=== PATIENT | male | born 1960 | race Caucasian/White ===

== ENCOUNTER 2016-09-14 19:08 | Inpatient (IN) | payer OTHER ==
[~2016-09-14] VITALS: Ht 162.6 cm; Wt 93.5 kg
--- NOTE | 2016-09-14 19:37 | NUR ---
PT SENT BACK OUT TO LOBBY PENDING BED AVAIL. PT AAOX4 AND IN NAD.
[2016-09-14 21:41] LABS: BASOPHIL % 0.6 % (0-2)
[2016-09-14 21:42] LABS: PLATELET COUNT 118 x10^3mcL (130-400)
[2016-09-14 21:47] LABS: CALCIUM 8.3 mg/dL (8.5-10.1); CARBON DIOXIDE 25.2 mmol/L (21-32); CREATININE SERUM 1.5 mg/dL (0.7-1.3)
[2016-09-14 21:54] LABS: ALBUMIN 2.3 g/dL (3.4-5.0); BILIRUBIN TOTAL 0.37 mg/dL (0.20-1.00); TOTAL PROTEIN, SERUM 7.8 g/dL (6.4-8.2)
--- NOTE | 2016-09-14 22:30 | NUR ---
MSE COMPLETED BY DR DUKE
--- NOTE | 2016-09-14 23:09 | NUR ---
REPORT CALLED TO VANESSA JESSICA TO ASSUME CARE OF PT
--- NOTE | 2016-09-14 23:15 | NUR ---
RECEIVED PT FROM ED VIA GUERNEY, CAME IN DUE TO ABDOMINAL PAIN. AAOX4. DENIES HEADACHE/DIZZINESS. NO SOB NOTED, C/O 1 EPISODE OF HEMOPTYSIS BEFORE ADMISSION. LUNG SOUNDS DIMINISHED. DENIES CHEST PAIN/PRESSURE. C/O 10/10 SHARP AND TIGHT MID ABDOMINAL PAIN. ABDOMEN IS DISTENDED AND MILDLY FIRM. C/O DIARRHEA FOR 4 DAYS. VOIDS FREELY. SIDE RAILS UPX2. CALL LIGHT ON REACH. DR. TOLBERT AT BEDSIDE ASSESSING THE PT. ENDORSED.
[2016-09-14 23:29] VITALS: BP 176/102
[2016-09-14 23:29] LABS: CHOLESTEROL/HDL RATIO 2.9; MAGNESIUM 1.9 mg/dL (1.8-2.4); PHOSPHOROUS 3.8 mg/dL (2.5-4.9)
[2016-09-14 23:36] VITALS: Ht 162.6 cm; Wt 93.5 kg
[2016-09-14 23:36] LABS: FREE T4 0.86 ng/dL (0.76-1.46); FREE THYROXINE INDEX 2.1 ug/dL (1.4-4.5); T4(THYROXINE) 6.7 ug/dL (4.7-13.3)
--- NOTE | 2016-09-14 23:53 | NUR ---
RECEIVED PATIENT AWAKE, ALERT, ORIENTED X4 IN BED. RESPIRATION EVEN AND UNLABORED, ON ROOM AIR. REPORT RECEIVED FROM RESOURCE NURSE FOR CONTINUATION OF CARE. WILL CONTINUE TO MONITOR.
[2016-09-15 00:23] LABS: T3 TOTAL 1.42 ng/mL
[2016-09-15] MEDS ORDERED: LISINOPRIL2.5 MG PO (00:34)
[2016-09-15] MEDS ORDERED: FUROSEMIDE20 MG PO (00:34)
[2016-09-15 00:38] VITALS: BP 142/90
--- NOTE | 2016-09-15 02:39 | NUR ---
PATIENT COMPLAINED OF SHARP, MID EPIGASTRIC PAIN, PS 10/10. MEDICATED WITH MORPHINE SULFATE 2 MG IVP ORDERED. WILL RE-ASSESS PATIENT.
[2016-09-15 02:45] LABS: UA SPECIFIC GRAVITY 1.025 (1.005-1.035); microscopic required? YES; urine erythrocyte 2+ (NEGATIVE)
[2016-09-15 02:54] LABS: AMPHETAMINE QUAL UR NONE DETECTED (NEG <=1000)
[2016-09-15 04:50] LABS: BASOPHIL % 0.5 % (0-2); RED CELL DISTRIBUTION WIDTH 13.4 % (11.5-14.5)
[2016-09-15 04:57] LABS: CALCIUM 8.1 mg/dL (8.5-10.1); CARBON DIOXIDE 23.8 mmol/L (21-32); CHLORIDE SERUM 110 mmol/L (98-107); CREATININE SERUM 1.3 mg/dL (0.7-1.3); GFR1 > 60 mL/min; GLUCOSE SERUM 111 mg/dL (74-106); POTASSIUM SERUM 3.8 mmol/L (3.5-5.1); SODIUM SERUM 146 mmol/L (136-145)
[2016-09-15 04:58] LABS: PLATELET COUNT 100 x10^3mcL (130-400)
[2016-09-15 05:35] VITALS: BP 131/84
--- NOTE | 2016-09-15 06:00 | NUR ---
PATIENT RESTING IN BED. DENIES PAIN AT THIS TIME. ON NPO EXCEPT MEDS. IV SITE NO SIGN OF INFILTRATION. ASSISTED WITH NEEDS. SAFETY OBSERVED. BED IN THE LOWEST POSITION. PLACED CALL LIGHT WITHIN REACH AT ALL TIMES.
--- NOTE | 2016-09-15 06:23 | NUR ---
PATIENT OF MID EPIGASTRIC ABDOMINAL, SHARP IN NATURE, PS 10/10. MEDICATED WITH MORPHINE SULFATE 2MG IVP ORDERED. WILL RE-ASSESS PATIENT.
--- NOTE | 2016-09-15 07:55 | NUR ---
PT AWAKE AND ALERT. TEMP 97.8. TELE #17 SINUS RHYTHM RATE 84. RESP 18 EVEN. BREATH SOUNDS CLEAR. ABD SOFT, BOWEL TONES PRESENT. C/O ABD DISCOMFORT UPPER QUADRANT "CENTER BELOW RIBS 8/10 ACHING" LAST MED WITH MORPHINE SULFATE AT 0615. WILL CONTINUE TO MONITOR FOR PAIN MANAGEMENT. VOIDING QS. NO EDEMA. PULSES PRESENT. SCD IN PLACE. IV PATENT LAC INFUSING NORMAL SALINE 20CC/HR. NPO AT THIS TIME. SIDE RAILS UP X2. CALL LIGHT IN REACH. DR XIE IN TO SEE PT. FOR EGD TODAY. DR MENDEZ AND MEDICAL TEAM IN ON ROUNDS. CHARGE AND PRIMARY NURSE PRESENT. DISCUSSED PLAN OF CARE WITH PT. PT VERBALIZED UNDERSTANDING.
--- NOTE | 2016-09-15 09:50 | NUR ---
PT CHART COMPLETED. ARMBAND IDENTIFIED. IV CONVERTED TO SALINE LOCK. PT TAKEN DOWN VIA GURNEY TO GI LAB FOR EGD AT THIS TIME.
[2016-09-15 10:27] VITALS: BP 145/84
--- NOTE | 2016-09-15 11:40 | NUR ---
RECEIVED PT BACK TO ROOM, AWAKE AND ALERT. FAMILY AT BEDSIDE. IVF RESUMED NORMAL SALINE 20CC/HR. MAY ADVANCE TO REGULAR DIET FOR LUNCH. PT MADE AWARE. REVIEWED NEED FOR STOOL SAMPLE FOR C-DIFF. CONTAINER IN ROOM. VERBALIZED UNDERSTANDING.
--- NOTE | 2016-09-15 13:50 | NUR ---
C/O ABD PAIN CENTER UNDER RIBS "12/09". REQUESTS MORPHINE. MED WITH MORPHINE SULFATE 2MG IVP ORDERED.
--- NOTE | 2016-09-15 14:30 | NUR ---
REPORTS "PAIN IS BETTER 2/10." FAMILY AT BEDSIDE. IV SALINE LOCK.
[2016-09-15 17:35] VITALS: BP 142/86
--- NOTE | 2016-09-15 18:00 | NUR ---
NO BM THIS SHIFT. SALINE LOCK INTACT. PT REPORTS "STOMACH HURTS AGAIN 12/09." REQUESTS MORPHINE. MED WITH MORPHINE SULFATE 2MG IVP. TOLERATES REGULAR DIET WELL NO C/O NAUSEA. CALL LIGHT IN REACH.
--- NOTE | 2016-09-15 19:52 | NUR ---
Awake and verbally responsive. No resp.distress noted on room air. Denies abd'l.pain or n/v. Denies diarrhea at this time. Will cont.to monitor. Call light within reach. visiting.
[2016-09-15 21:33] VITALS: BP 139/79
--- NOTE | 2016-09-16 04:09 | NUR ---
Afebrile. No significant change in condition noted. On and off abd'l. pain , medicated with morphine 2mg IV as ordered with relief. No n/v noted. Denies diarrhea. Ambulated. In no apparent distress.
[2016-09-16 06:09] LABS: CREATININE SERUM 1.3 mg/dL (0.7-1.3); GFR1 > 60 mL/min
[2016-09-16 06:26] LABS: BASOPHIL % 0.6 % (0-2); RED CELL DISTRIBUTION WIDTH 13.8 % (11.5-14.5)
[2016-09-16 06:30] LABS: PLATELET COUNT 98 x10^3mcL (130-400)
[2016-09-16 06:53] LABS: CARBON DIOXIDE 27.1 mmol/L (21-32); CHLORIDE SERUM 107 mmol/L (98-107); GLUCOSE SERUM 88 mg/dL (74-106); POTASSIUM SERUM 4.1 mmol/L (3.5-5.1); SODIUM SERUM 140 mmol/L (136-145)
--- NOTE | 2016-09-16 08:00 | NUR ---
RECEIVED PT IN BED.ASSESSED AND DOCUMENTED.STATED RT SIDE ABDOMINAL PAIN,12/09. WILL MEDICATE PT WITH MORPHINE IV ORDERED. SAFTEY PRECAUTIONS ON. WILL MONITOR.
--- NOTE | 2016-09-16 08:45 | NUR ---
AND RESIDENTS DID ROUNDS. EXPLAINED THE PLAN OF CARE AND ANSWERED ALL PT'S QUESTIONS.
--- NOTE | 2016-09-16 09:00 | NUR ---
INFORMED ABOUT PT POSITIVE FOR MRSA OF [place]. HE SAID HE WILL PUT ORDER'S.
[2016-09-16 10:14] VITALS: BP 118/74
[2016-09-16] MEDS ORDERED: HIBICLENS118 ML TOP (11:29)
[2016-09-16] MEDS ORDERED: BACO TOP (11:29)
[2016-09-16] MEDS ORDERED: PROTONIX40 MG PO (11:37)
[2016-09-16 12:48] VITALS: BP 118/74
--- NOTE | 2016-09-16 13:10 | NUR ---
DISCHARGE INSTRUCTIONS GIVEN. PRESCRIPTIONS SENT TO HIS PHARMACY BY DOCTOR. PT DENIES PAIN THIS TIME. NO DISTRESS NOTED. TAIL TRIMMER WHEELED PT DOWN TO LOBBY ACCOMPANIED WITH PT'S . PT DC HOME.
== END 2016-09-16 13:25 | disposition home or self-care (01) | DRG 254 ==
LOC: ED 19:08 → DU 22:34 → MU 22:34 → DU 23:24 → MU 09-15 08:36
PROVIDERS: Emergency Medicine; Family Medicine; Internal Medicine; ADMIT Family Medicine
PROC: 0DJ08ZZ Inspection of Upper Intestinal Tract, Via Natural or Artificial Opening Endoscopic (ICD-10-PCS; principal; 2016-09-15 12:30)
DX: K31.84 Gastroparesis (principal); N17.0 Acute kidney failure with tubular necrosis; I85.11 Secondary esophageal varices with bleeding; E43 Unspecified severe protein-calorie malnutrition; K85.90 Acute pancreatitis without necrosis or infection, unspecified; E87.8 Other disorders of electrolyte and fluid balance, not elsewhere classified; K92.0 Hematemesis; D69.59 Other secondary thrombocytopenia; E83.51 Hypocalcemia; B18.2 Chronic viral hepatitis C; K70.30 Alcoholic cirrhosis of liver without ascites; I10 Essential (primary) hypertension; E78.1 Pure hyperglyceridemia; E02 Subclinical iodine-deficiency hypothyroidism; E66.9 Obesity, unspecified; Z68.35 Body mass index [BMI] 35.0-35.9, adult; Z87.891 Personal history of nicotine dependence
CPT/HCPCS: 43235; 80307; 83880; 84439; C9113; J1200; J1610; J1940; J2250; J2270; J2310; J2405; J3010; J3490; J7030; Q0092

== ENCOUNTER 2016-10-18 06:38 | Inpatient (IN) | payer OTHER ==
[~2016-10-18] VITALS: Ht 170.2 cm; Wt 93.5 kg
[~2016-10-18 06:38] MED LIST: BACO TOP; FUROSEMIDE20 MG PO; HIBICLENS118 ML TOP; LISINOPRIL2.5 MG PO; PROTONIX40 MG PO
[2016-10-18 07:22] LABS: BASOPHIL % 0.3 % (0-2); PLATELET COUNT 84 x10^3mcL (130-400); RED CELL DISTRIBUTION WIDTH 14.6 % (11.5-14.5)
[2016-10-18 07:44] LABS: CALCIUM 8.2 mg/dL (8.5-10.1); CARBON DIOXIDE 24.1 mmol/L (21-32); CHLORIDE SERUM 110 mmol/L (98-107); GFR1 > 60 mL/min; GLUCOSE SERUM 105 mg/dL (74-106); POTASSIUM SERUM 3.6 mmol/L (3.5-5.1); SODIUM SERUM 141 mmol/L (136-145)
[2016-10-18 07:48] LABS: ALKALINE PHOSPHATASE 83 U/L (46-116); ALT/SGPT 63 U/L (16-63); AST/SGOT 62 U/L (15-37); BILIRUBIN TOTAL 0.5 mg/dL (0.20-1.00); TOTAL PROTEIN, SERUM 6.7 g/dL (6.4-8.2)
[2016-10-18 07:50] LABS: ALBUMIN 2.2 g/dL (3.4-5.0)
[2016-10-18 09:38] LABS: BASOPHIL % 0.4 % (0-2)
[2016-10-18 09:42] LABS: PLATELET COUNT 75 x10^3mcL (130-400)
[2016-10-18 11:00] VITALS: BP 158/83
[2016-10-18 12:03] LABS: T3 TOTAL 1.36 ng/mL
[2016-10-18 13:02] LABS: MAGNESIUM 1.7 mg/dL (1.8-2.4)
[2016-10-18 13:05] LABS: CHOLESTEROL/HDL RATIO 2.7
[2016-10-18 13:10] LABS: FREE T4 0.94 ng/dL (0.76-1.46); FREE THYROXINE INDEX 2.2 ug/dL (1.4-4.5); T4(THYROXINE) 6.4 ug/dL (4.7-13.3)
[2016-10-18 14:10] VITALS: BP 132/86
[2016-10-18 17:13] VITALS: BP 138/76
[2016-10-18 18:06] LABS: UA SPECIFIC GRAVITY 1.025 (1.005-1.035); microscopic required? YES; urine erythrocyte 2+ (NEGATIVE)
[2016-10-18 18:14] LABS: AMPHETAMINE QUAL UR NONE DETECTED (NEG <=1000)
[2016-10-18 21:22] VITALS: BP 126/69
[2016-10-19 05:22] VITALS: BP 143/80
[2016-10-19 06:32] LABS: BASOPHIL % 0.5 % (0-2)
[2016-10-19 06:39] LABS: PLATELET COUNT 62 x10^3mcL (130-400); RED CELL DISTRIBUTION WIDTH 14.9 % (11.5-14.5)
[2016-10-19 06:43] LABS: CALCIUM 7.6 mg/dL (8.5-10.1); CARBON DIOXIDE 24.9 mmol/L (21-32); CHLORIDE SERUM 114 mmol/L (98-107); CREATININE SERUM 0.9 mg/dL (0.7-1.3); GFR1 > 60 mL/min; GLUCOSE SERUM 91 mg/dL (74-106); MAGNESIUM 1.8 mg/dL (1.8-2.4); PHOSPHOROUS 3.3 mg/dL (2.5-4.9); POTASSIUM SERUM 4.4 mmol/L (3.5-5.1); SODIUM SERUM 145 mmol/L (136-145)
[2016-10-19 09:51] VITALS: BP 138/85
[2016-10-19 11:21] VITALS: Ht 170.2 cm; Wt 93.5 kg
[2016-10-19 14:37] VITALS: BP 144/83
[2016-10-19 17:56] VITALS: BP 153/80
[2016-10-19 21:37] VITALS: BP 147/82
[2016-10-20 05:35] VITALS: BP 135/76
[2016-10-20 06:45] LABS: BASOPHIL % 0.5 % (0-2)
[2016-10-20 06:54] LABS: CALCIUM 7.7 mg/dL (8.5-10.1); CARBON DIOXIDE 24.6 mmol/L (21-32); CHLORIDE SERUM 114 mmol/L (98-107); CREATININE SERUM 0.8 mg/dL (0.7-1.3); GFR1 > 60 mL/min; GLUCOSE SERUM 90 mg/dL (74-106); POTASSIUM SERUM 4.7 mmol/L (3.5-5.1); SODIUM SERUM 144 mmol/L (136-145)
[2016-10-20 07:15] LABS: PLATELET COUNT 66 x10^3mcL (130-400)
[2016-10-20 09:14] VITALS: BP 131/72
[2016-10-20 13:11] VITALS: BP 131/72
[2016-10-20] MEDS ORDERED: PROTONIX40 MG PO (15:50)
[2016-10-20] MEDS ORDERED: LISINOPRIL2.5 MG PO (15:50)
[2016-10-20] MEDS ORDERED: FUROSEMIDE20 MG PO (15:50)
[2016-10-20] MEDS ORDERED: APAP/HYDROCODON1 T13 PO (15:51)
[2016-10-20] MEDS ORDERED: CARAFATE1 GM PO (15:53)
[2016-10-20] MEDS ORDERED: COL100 PO (15:59)
== END 2016-10-20 17:22 | disposition home or self-care (01) | DRG 280 ==
LOC: ED 06:38 → DU 10:16 → MU 10-19 12:22
PROVIDERS: Emergency Medicine; Family Medicine; Internal Medicine; ADMIT Family Medicine
PROC: 0DJ08ZZ Inspection of Upper Intestinal Tract, Via Natural or Artificial Opening Endoscopic (ICD-10-PCS; principal; 2016-10-18 13:30)
DX: K70.30 Alcoholic cirrhosis of liver without ascites (principal); N17.0 Acute kidney failure with tubular necrosis; E43 Unspecified severe protein-calorie malnutrition; I85.11 Secondary esophageal varices with bleeding; D69.59 Other secondary thrombocytopenia; E87.8 Other disorders of electrolyte and fluid balance, not elsewhere classified; E83.42 Hypomagnesemia; Z68.32 Body mass index [BMI] 32.0-32.9, adult; I10 Essential (primary) hypertension; E66.9 Obesity, unspecified; K31.84 Gastroparesis; R31.9 Hematuria, unspecified
CPT/HCPCS: 43235; 83880; 84439; C9113; J1200; J1610; J2250; J2270; J2310; J2765; J3010; J3490; J7030; Q0092

== ENCOUNTER 2016-10-30 07:28 | Emergency (ER) | payer OTHER ==
[~2016-10-30 07:28] MED LIST changes: +APAP/HYDROCODON1 T13 PO; +CARAFATE1 GM PO; +COL100 PO
[2016-10-30 08:23] LABS: BASOPHIL % 0.6 % (0-2)
[2016-10-30 08:31] LABS: PLATELET COUNT 102 x10^3mcL (130-400); RED CELL DISTRIBUTION WIDTH 14.6 % (11.5-14.5)
[2016-10-30 08:46] LABS: CALCIUM 8.3 mg/dL (8.5-10.1); CARBON DIOXIDE 21.8 mmol/L (21-32); CHLORIDE SERUM 110 mmol/L (98-107); CREATININE SERUM 1.1 mg/dL (0.7-1.3); GFR1 > 60 mL/min; GLUCOSE SERUM 105 mg/dL (74-106); POTASSIUM SERUM 3.9 mmol/L (3.5-5.1); SODIUM SERUM 141 mmol/L (136-145)
[2016-10-30 08:51] LABS: ALKALINE PHOSPHATASE 84 U/L (46-116); ALT/SGPT 58 U/L (16-63); AST/SGOT 61 U/L (15-37); BILIRUBIN TOTAL 0.9 mg/dL (0.20-1.00); LIPASE 208 IU/L (73-393)
[2016-10-30 08:56] LABS: ALBUMIN 2.4 g/dL (3.4-5.0)
[2016-10-30 09:05] VITALS: BP 150/95
== END 2016-10-30 09:16 | disposition home or self-care (01) ==
LOC: ED 07:28
PROVIDERS: Emergency Medicine
DX: R10.13 Epigastric pain (principal); I10 Essential (primary) hypertension
CPT/HCPCS: J2270; J2405; Q0092

== ENCOUNTER 2016-10-31 20:29 | Emergency (ER) | payer OTHER ==
[2016-10-31 21:09] LABS: BASOPHIL % 0.6 % (0-2); RED CELL DISTRIBUTION WIDTH 14.5 % (11.5-14.5)
[2016-10-31 21:10] LABS: PLATELET COUNT 106 x10^3mcL (130-400)
[2016-10-31 21:16] LABS: CALCIUM 7.9 mg/dL (8.5-10.1); CARBON DIOXIDE 23.8 mmol/L (21-32); CHLORIDE SERUM 107 mmol/L (98-107); CREATININE SERUM 1.2 mg/dL (0.7-1.3); GFR1 > 60 mL/min; GLUCOSE SERUM 80 mg/dL (74-106); POTASSIUM SERUM 3.9 mmol/L (3.5-5.1); SODIUM SERUM 136 mmol/L (136-145)
[2016-10-31 21:21] LABS: ALKALINE PHOSPHATASE 75 U/L (46-116); ALT/SGPT 50 U/L (16-63); AST/SGOT 54 U/L (15-37); BILIRUBIN TOTAL 0.81 mg/dL (0.20-1.00); LIPASE 214 IU/L (73-393); TOTAL PROTEIN, SERUM 6.5 g/dL (6.4-8.2)
[2016-10-31 21:23] LABS: ALBUMIN 2.2 g/dL (3.4-5.0); AMYLASE 117 U/L (25-115)
[2016-10-31 21:47] LABS: CK-MB 0.9 ng/mL (0-3.6)
[2016-10-31 22:38] LABS: microscopic required? YES; urine erythrocyte 1+ (NEGATIVE)
[2016-11-01 01:55] VITALS: BP 150/80
== END 2016-11-01 01:55 | disposition home or self-care (01) ==
LOC: ED 20:29
PROVIDERS: Emergency Medicine
DX: M54.5 Low back pain (principal); J40 Bronchitis, not specified as acute or chronic; I10 Essential (primary) hypertension
CPT/HCPCS: J1170; J2270; J2405; J7040; J7613; J7644; Q9967

== ENCOUNTER 2016-11-04 23:51 | Emergency (ER) | payer OTHER ==
[2016-11-05 04:08] LABS: BASOPHIL % 1.3 % (0-2); PLATELET COUNT 131 x10^3mcL (130-400)
[2016-11-05 04:12] LABS: RED CELL DISTRIBUTION WIDTH 14.7 % (11.5-14.5)
[2016-11-05 04:19] LABS: CALCIUM 7.2 mg/dL (8.5-10.1); CARBON DIOXIDE 20.9 mmol/L (21-32); CHLORIDE SERUM 111 mmol/L (98-107); CREATININE SERUM 0.9 mg/dL (0.7-1.3); GFR1 > 60 mL/min; GLUCOSE SERUM 116 mg/dL (74-106); POTASSIUM SERUM 3.3 mmol/L (3.5-5.1); SODIUM SERUM 143 mmol/L (136-145)
[2016-11-05 04:23] LABS: ALKALINE PHOSPHATASE 91 U/L (46-116); ALT/SGPT 43 U/L (16-63); AST/SGOT 66 U/L (15-37); BILIRUBIN TOTAL 0.2 mg/dL (0.20-1.00); LIPASE 295 IU/L (73-393); TOTAL PROTEIN, SERUM 6.2 g/dL (6.4-8.2)
[2016-11-05 04:27] LABS: ALBUMIN 1.8 g/dL (3.4-5.0)
[2016-11-05 05:45] VITALS: BP 146/90
== END 2016-11-05 05:45 | disposition home or self-care (01) ==
LOC: ED 23:51
PROVIDERS: Emergency Medicine
DX: R11.2 Nausea with vomiting, unspecified (principal); I10 Essential (primary) hypertension; Z79.899 Other long term (current) drug therapy
CPT/HCPCS: J7030

== ENCOUNTER 2016-11-15 06:19 | Emergency (ER) | payer OTHER ==
[2016-11-15 06:40] LABS: BASOPHIL % 0.6 % (0-2)
[2016-11-15 06:50] LABS: PLATELET COUNT 93 x10^3mcL (130-400); RED CELL DISTRIBUTION WIDTH 15.2 % (11.5-14.5)
[2016-11-15 06:57] LABS: CALCIUM 7.7 mg/dL (8.5-10.1); CARBON DIOXIDE 22.7 mmol/L (21-32); CHLORIDE SERUM 114 mmol/L (98-107); CREATININE SERUM 0.9 mg/dL (0.7-1.3); GFR1 > 60 mL/min; GLUCOSE SERUM 103 mg/dL (74-106); POTASSIUM SERUM 3.7 mmol/L (3.5-5.1); SODIUM SERUM 146 mmol/L (136-145)
[2016-11-15 07:01] LABS: ALKALINE PHOSPHATASE 67 U/L (46-116); ALT/SGPT 57 U/L (16-63); AST/SGOT 80 U/L (15-37); BILIRUBIN TOTAL 0.36 mg/dL (0.20-1.00); LIPASE 249 IU/L (73-393); TOTAL PROTEIN, SERUM 6.3 g/dL (6.4-8.2)
[2016-11-15 08:43] VITALS: BP 178/110
== END 2016-11-15 08:43 | disposition home or self-care (01) ==
LOC: ED 06:19
PROVIDERS: Emergency Medicine
DX: K92.0 Hematemesis (principal); I10 Essential (primary) hypertension; K74.60 Unspecified cirrhosis of liver; Z86.79 Personal history of other diseases of the circulatory system; Z87.19 Personal history of other diseases of the digestive system
CPT/HCPCS: J2405; J3010; J3490; J7030; Q0092

== ENCOUNTER 2016-11-18 21:35 | Emergency (ER) | payer OTHER ==
[2016-11-19 00:14] VITALS: BP 163/90
== END 2016-11-19 00:15 | disposition home or self-care (01) ==
LOC: ED 21:35
DX: M25.561 Pain in right knee (principal); M79.89 Other specified soft tissue disorders; I10 Essential (primary) hypertension; Z86.79 Personal history of other diseases of the circulatory system; Z98.890 Other specified postprocedural states
CPT/HCPCS: J1885; Q0092

== ENCOUNTER 2016-11-20 17:07 | Emergency (ER) | payer OTHER ==
[~2016-11-20] VITALS: Ht 172.7 cm; Wt 96.2 kg
[2016-11-20 19:25] LABS: BASOPHIL % 0.4 % (0-2)
[2016-11-20 19:29] LABS: PLATELET COUNT 91 x10^3mcL (130-400); RED CELL DISTRIBUTION WIDTH 15.5 % (11.5-14.5)
[2016-11-20 19:34] LABS: CALCIUM 7.9 mg/dL (8.5-10.1); CARBON DIOXIDE 26.6 mmol/L (21-32); CHLORIDE SERUM 111 mmol/L (98-107); CREATININE SERUM 0.9 mg/dL (0.7-1.3); GFR1 > 60 mL/min; GLUCOSE SERUM 94 mg/dL (74-106); POTASSIUM SERUM 4.3 mmol/L (3.5-5.1); SODIUM SERUM 143 mmol/L (136-145)
[2016-11-20 19:39] LABS: ALKALINE PHOSPHATASE 68 U/L (46-116); ALT/SGPT 78 U/L (16-63); AST/SGOT 82 U/L (15-37); BILIRUBIN TOTAL 0.36 mg/dL (0.20-1.00); LIPASE 199 IU/L (73-393); TOTAL PROTEIN, SERUM 6.4 g/dL (6.4-8.2)
[2016-11-20 19:40] LABS: ALBUMIN 2.1 g/dL (3.4-5.0)
[2016-11-20 20:30] VITALS: BP 163/93
== END 2016-11-20 20:30 | disposition home or self-care (01) ==
LOC: ED 17:07
PROVIDERS: Emergency Medicine
DX: M54.9 Dorsalgia, unspecified (principal); R10.11 Right upper quadrant pain; K74.60 Unspecified cirrhosis of liver; R16.0 Hepatomegaly, not elsewhere classified; I10 Essential (primary) hypertension; Z79.899 Other long term (current) drug therapy; Z86.19 Personal history of other infectious and parasitic diseases; Z98.890 Other specified postprocedural states
CPT/HCPCS: 36415

== ENCOUNTER 2016-12-01 12:50 | Emergency (ER) | payer OTHER ==
[2016-12-01 14:36] LABS: BASOPHIL % 0.7 % (0-2); RED CELL DISTRIBUTION WIDTH 14.3 % (11.5-14.5)
[2016-12-01 14:43] LABS: CALCIUM 8.4 mg/dL (8.5-10.1); CHLORIDE SERUM 113 mmol/L (98-107); CREATININE SERUM 1.1 mg/dL (0.7-1.3); GFR1 > 60 mL/min; GLUCOSE SERUM 105 mg/dL (74-106); POTASSIUM SERUM 3.5 mmol/L (3.5-5.1); SODIUM SERUM 142 mmol/L (136-145)
[2016-12-01 14:44] LABS: PLATELET COUNT 89 x10^3mcL (130-400)
[2016-12-01 14:47] LABS: ALKALINE PHOSPHATASE 74 U/L (46-116); ALT/SGPT 62 U/L (16-63); AST/SGOT 55 U/L (15-37); BILIRUBIN TOTAL 0.7 mg/dL (0.20-1.00); LIPASE 201 IU/L (73-393); TOTAL PROTEIN, SERUM 6.9 g/dL (6.4-8.2)
[2016-12-01 14:58] LABS: ALBUMIN 2.3 g/dL (3.4-5.0)
[2016-12-01 15:10] LABS: microscopic required? YES; urine erythrocyte 3+ (NEGATIVE)
[2016-12-01 15:45] VITALS: BP 156/91
== END 2016-12-01 15:46 | disposition home or self-care (01) ==
LOC: ED 12:50
PROVIDERS: Emergency Medicine
DX: R10.13 Epigastric pain (principal); I10 Essential (primary) hypertension
CPT/HCPCS: J2270

== ENCOUNTER 2016-12-21 01:56 | Emergency (ER) | payer OTHER ==
[2016-12-21 02:57] VITALS: BP 145/89
== END 2016-12-21 02:57 | disposition home or self-care (01) ==
LOC: ED 01:56
DX: G89.29 Other chronic pain (principal); M54.5 Low back pain; I10 Essential (primary) hypertension

== ENCOUNTER 2017-02-13 20:14 | Emergency (ER) | payer OTHER ==
[2017-02-13 21:01] LABS: BASOPHIL % 0.6 % (0-2); RED CELL DISTRIBUTION WIDTH 13.8 % (11.5-14.5)
[2017-02-13 21:06] LABS: CALCIUM 8.1 mg/dL (8.5-10.1); CARBON DIOXIDE 28.2 mmol/L (21-32); CHLORIDE SERUM 109 mmol/L (98-107); CREATININE SERUM 1.3 mg/dL (0.7-1.3); GFR1 > 60 mL/min; GLUCOSE SERUM 88 mg/dL (74-106); PLATELET COUNT 100 x10^3mcL (130-400); POTASSIUM SERUM 4.2 mmol/L (3.5-5.1); SODIUM SERUM 141 mmol/L (136-145)
[2017-02-13 21:10] LABS: ALKALINE PHOSPHATASE 69 U/L (46-116); ALT/SGPT 52 U/L (16-63); AST/SGOT 58 U/L (15-37); BILIRUBIN TOTAL 0.4 mg/dL (0.20-1.00); MAGNESIUM 1.9 mg/dL (1.8-2.4); TOTAL PROTEIN, SERUM 6.5 g/dL (6.4-8.2)
[2017-02-13 21:11] LABS: ALBUMIN 2.2 g/dL (3.4-5.0)
[2017-02-13 22:45] VITALS: BP 125/76
== END 2017-02-13 22:45 | disposition home or self-care (01) ==
LOC: ED 20:14
PROVIDERS: Emergency Medicine
DX: R25.2 Cramp and spasm (principal); E83.51 Hypocalcemia
CPT/HCPCS: 36415; J1885; Q0092

== ENCOUNTER 2017-03-06 06:44 | Inpatient (IN) | payer OTHER ==
[~2017-03-06] VITALS: Ht 172.7 cm; Wt 90.9 kg
[2017-03-06 07:39] LABS: CALCIUM 8.2 mg/dL (8.5-10.1); CARBON DIOXIDE 25.1 mmol/L (21-32); CHLORIDE SERUM 110 mmol/L (98-107); GFR1 > 60 mL/min; GLUCOSE SERUM 103 mg/dL (74-106); POTASSIUM SERUM 3.8 mmol/L (3.5-5.1); SODIUM SERUM 141 mmol/L (136-145)
[2017-03-06 07:40] LABS: BASOPHIL % 0.3 % (0-2); RED CELL DISTRIBUTION WIDTH 13.7 % (11.5-14.5)
[2017-03-06 07:43] LABS: ALKALINE PHOSPHATASE 65 U/L (46-116); ALT/SGPT 47 U/L (16-63); AST/SGOT 57 U/L (15-37); BILIRUBIN TOTAL 0.82 mg/dL (0.20-1.00); LIPASE 229 IU/L (73-393); TOTAL PROTEIN, SERUM 6.7 g/dL (6.4-8.2)
[2017-03-06 07:44] LABS: ALBUMIN 2.4 g/dL (3.4-5.0); AMYLASE 142 U/L (25-115)
[2017-03-06 07:47] LABS: PLATELET COUNT 78 x10^3mcL (130-400)
[2017-03-06 08:05] LABS: microscopic required? YES; urine erythrocyte 2+ (NEGATIVE)
[2017-03-06 11:01] LABS: CHOLESTEROL/HDL RATIO 2.5; MAGNESIUM 1.6 mg/dL (1.8-2.4)
[2017-03-06 11:02] LABS: AMPHETAMINE QUAL UR NONE DETECTED (NEG <=1000)
[2017-03-06 11:10] LABS: FREE T4 0.94 ng/dL (0.76-1.46); FREE THYROXINE INDEX 2.1 ug/dL (1.4-4.5)
[2017-03-06 11:15] VITALS: BP 152/83
[2017-03-06 13:09] VITALS: BP 113/76
[2017-03-06] MEDS ORDERED: PROPRANOLOL HCL20 MG PO (13:30)
[2017-03-06] MEDS ORDERED: DICLOFENAC SODI75 MG PO (13:31)
[2017-03-06] MEDS ORDERED: DIOVAN160 MG PO (13:32)
[2017-03-06] MEDS ORDERED: ALDACTONE25 MG PO (13:32)
[2017-03-06 15:59] LABS: T3 TOTAL 1.38 ng/mL
[2017-03-06 18:09] VITALS: BP 148/83
[2017-03-06 21:08] VITALS: BP 127/73
[2017-03-07 05:33] VITALS: BP 144/87
[2017-03-07 06:58] LABS: CALCIUM 8.2 mg/dL (8.5-10.1); CARBON DIOXIDE 26.4 mmol/L (21-32); CHLORIDE SERUM 107 mmol/L (98-107); CREATININE SERUM 0.9 mg/dL (0.7-1.3); GFR1 > 60 mL/min; GLUCOSE SERUM 95 mg/dL (74-106); MAGNESIUM 1.7 mg/dL (1.8-2.4); POTASSIUM SERUM 4.2 mmol/L (3.5-5.1); SODIUM SERUM 139 mmol/L (136-145)
[2017-03-07 07:01] LABS: BASOPHIL % 0.5 % (0-2); RED CELL DISTRIBUTION WIDTH 14.4 % (11.5-14.5)
[2017-03-07 07:07] LABS: PLATELET COUNT 75 x10^3mcL (130-400)
[2017-03-07 09:08] VITALS: BP 139/78
[2017-03-07 13:24] VITALS: BP 138/77
[2017-03-07 17:18] VITALS: Ht 172.7 cm; Wt 90.9 kg
[2017-03-07] MEDS ORDERED: SEN PO (17:23)
[2017-03-07 17:24] VITALS: BP 150/86
[2017-03-07] MEDS ORDERED: BACO TOP (17:24)
[2017-03-07] MEDS ORDERED: HIB240 TOP (17:25)
[2017-03-07] MEDS ORDERED: TOR10 PO (17:26)
[2017-03-07] MEDS ORDERED: NORCO1 TA1 PO (17:27)
[2017-03-07 20:39] VITALS: BP 132/81
[2017-03-08 05:20] VITALS: BP 130/77
[2017-03-08 06:07] LABS: BASOPHIL % 0.3 % (0-2); RED CELL DISTRIBUTION WIDTH 13.9 % (11.5-14.5)
[2017-03-08 06:34] LABS: CALCIUM 7.8 mg/dL (8.5-10.1); CARBON DIOXIDE 25.9 mmol/L (21-32); CHLORIDE SERUM 109 mmol/L (98-107); GFR1 > 60 mL/min; GLUCOSE SERUM 94 mg/dL (74-106); MAGNESIUM 1.8 mg/dL (1.8-2.4); POTASSIUM SERUM 4.2 mmol/L (3.5-5.1); SODIUM SERUM 140 mmol/L (136-145)
[2017-03-08 06:47] LABS: PLATELET COUNT 70 x10^3mcL (130-400)
[2017-03-08 09:59] VITALS: BP 132/79
[2017-03-08] MEDS ORDERED: GUAIFENESIN600 MG PO (10:18)
[2017-03-08 10:31] VITALS: BP 147/87
== END 2017-03-08 11:30 | disposition home or self-care (01) | DRG 280 ==
LOC: ED 06:44 → DU 09:32 → MU 03-07 17:54
PROVIDERS: Emergency Medicine; Family Medicine Sports Medicine; Internal Medicine Gastroenterology; ADMIT Student in an Organized Health Care Education/Training Program
PROC: 0DB68ZX Excision of Stomach, Via Natural or Artificial Opening Endoscopic, Diagnostic (ICD-10-PCS; principal; 2017-03-07 10:30)
DX: K70.30 Alcoholic cirrhosis of liver without ascites (principal); K70.10 Alcoholic hepatitis without ascites; N17.0 Acute kidney failure with tubular necrosis; E43 Unspecified severe protein-calorie malnutrition; I85.11 Secondary esophageal varices with bleeding; D69.59 Other secondary thrombocytopenia; E87.8 Other disorders of electrolyte and fluid balance, not elsewhere classified; K76.6 Portal hypertension; F10.10 Alcohol abuse, uncomplicated; I10 Essential (primary) hypertension; R31.9 Hematuria, unspecified; E66.9 Obesity, unspecified; Z68.30 Body mass index [BMI] 30.0-30.9, adult; B19.20 Unspecified viral hepatitis C without hepatic coma; K21.9 Gastro-esophageal reflux disease without esophagitis
CPT/HCPCS: 43235; 83880; 84439; 90658; C9113; G0480; J1200; J1610; J1885; J2250; J2310; J2765; J3010; J3490; J7030; J7040; Q0092

== ENCOUNTER 2017-04-29 10:12 | Emergency (ER) | payer OTHER ==
[~2017-04-29] VITALS: Ht 172.7 cm; Wt 94.8 kg
[~2017-04-29 10:12] MED LIST changes: +ALDACTONE25 MG PO; +DICLOFENAC SODI75 MG PO; +DIOVAN160 MG PO; +GUAIFENESIN600 MG PO; +HIB240 TOP; +NORCO1 TA1 PO; +PROPRANOLOL HCL20 MG PO; +SEN PO; +TOR10 PO
[2017-04-29 10:28] VITALS: BP 157/90; Ht 172.7 cm; Wt 94.8 kg
== END 2017-04-29 15:57 | disposition home or self-care (01) ==
LOC: ED 10:12
DX: S29.012A Strain of muscle and tendon of back wall of thorax, initial encounter (principal); X58.XXXA Exposure to other specified factors, initial encounter; Y93.89 Activity, other specified; Y92.89 Other specified places as the place of occurrence of the external cause; Y99.8 Other external cause status; I10 Essential (primary) hypertension; R60.9 Edema, unspecified
CPT/HCPCS: J1885; Q0092

== ENCOUNTER 2017-05-18 09:24 | Emergency (ER) | payer OTHER ==
[~2017-05-18] VITALS: Ht 172.7 cm; Wt 93.9 kg
[2017-05-18 09:32] VITALS: Ht 172.7 cm; Wt 93.9 kg
[2017-05-18 10:12] LABS: CALCIUM 8.2 mg/dL (8.5-10.1); CARBON DIOXIDE 22.9 mmol/L (21-32); CHLORIDE SERUM 107 mmol/L (98-107); CREATININE SERUM 0.9 mg/dL (0.7-1.3); GFR1 > 60 mL/min; GLUCOSE SERUM 94 mg/dL (74-106); POTASSIUM SERUM 4.2 mmol/L (3.5-5.1); SODIUM SERUM 136 mmol/L (136-145)
[2017-05-18 10:16] LABS: ALKALINE PHOSPHATASE 62 U/L (46-116); ALT/SGPT 42 U/L (16-63); AST/SGOT 51 U/L (15-37); BILIRUBIN TOTAL 0.55 mg/dL (0.20-1.00); LIPASE 290 IU/L (73-393); TOTAL PROTEIN, SERUM 6.8 g/dL (6.4-8.2)
[2017-05-18 10:18] LABS: ALBUMIN 2.1 g/dL (3.4-5.0); AMYLASE 189 U/L (25-115)
[2017-05-18 10:25] LABS: BASOPHIL % 0.6 % (0-2); RED CELL DISTRIBUTION WIDTH 13.9 % (11.5-14.5)
[2017-05-18 10:26] LABS: PLATELET COUNT 100 x10^3mcL (130-400)
[2017-05-18 13:08] VITALS: BP 143/98
== END 2017-05-18 13:08 | disposition home or self-care (01) ==
LOC: ED 09:24
PROVIDERS: Emergency Medicine Emergency Medical Services
DX: J98.01 Acute bronchospasm (principal); J40 Bronchitis, not specified as acute or chronic; R10.84 Generalized abdominal pain; I10 Essential (primary) hypertension; Z87.19 Personal history of other diseases of the digestive system
CPT/HCPCS: 36415; 83880; J7620

== ENCOUNTER 2017-05-23 11:23 | Inpatient (IN) | payer OTHER ==
[~2017-05-23] VITALS: Ht 172.7 cm; Wt 97.5 kg
[2017-05-23 12:27] LABS: BASOPHIL % 0.3 % (0-2); CALCIUM 7.9 mg/dL (8.5-10.1); CARBON DIOXIDE 23.3 mmol/L (21-32); CHLORIDE SERUM 109 mmol/L (98-107); GFR1 > 60 mL/min; GLUCOSE SERUM 132 mg/dL (74-106); POTASSIUM SERUM 4.1 mmol/L (3.5-5.1); SODIUM SERUM 141 mmol/L (136-145)
[2017-05-23 12:29] LABS: PLATELET COUNT 100 x10^3mcL (130-400)
[2017-05-23 12:31] LABS: ALKALINE PHOSPHATASE 55 U/L (46-116); ALT/SGPT 52 U/L (16-63); AST/SGOT 44 U/L (15-37); BILIRUBIN TOTAL 0.3 mg/dL (0.20-1.00); LIPASE 210 IU/L (73-393); TOTAL PROTEIN, SERUM 6.5 g/dL (6.4-8.2)
[2017-05-23 12:32] LABS: ALBUMIN 2.2 g/dL (3.4-5.0)
[2017-05-23 13:59] VITALS: BP 160/85
[2017-05-23 16:04] LABS: CHOLESTEROL/HDL RATIO 2.4; MAGNESIUM 1.9 mg/dL (1.8-2.4); PHOSPHOROUS 3.1 mg/dL (2.5-4.9)
[2017-05-23 16:12] LABS: T3 TOTAL 1.09 ng/mL
[2017-05-23 16:23] LABS: FREE T4 0.91 ng/dL (0.76-1.46); FREE THYROXINE INDEX 2.1 ug/dL (1.4-4.5); T4(THYROXINE) 5.8 ug/dL (4.7-13.3)
[2017-05-23 21:28] VITALS: BP 138/83
[2017-05-24 05:58] LABS: BASOPHIL % 0.4 % (0-2); RED CELL DISTRIBUTION WIDTH 13.9 % (11.5-14.5)
[2017-05-24 06:05] VITALS: BP 146/93
[2017-05-24 06:09] LABS: PLATELET COUNT 115 x10^3mcL (130-400)
[2017-05-24 08:08] LABS: CHLORIDE SERUM 110 mmol/L (98-107); CREATININE SERUM 0.9 mg/dL (0.7-1.3); GFR1 > 60 mL/min; GLUCOSE SERUM 87 mg/dL (74-106); MAGNESIUM 2.1 mg/dL (1.8-2.4); PHOSPHOROUS 4.1 mg/dL (2.5-4.9); POTASSIUM SERUM 3.8 mmol/L (3.5-5.1); SODIUM SERUM 142 mmol/L (136-145)
[2017-05-24 08:11] LABS: UA SPECIFIC GRAVITY >=1.030 (1.005-1.035); microscopic required? YES; urine erythrocyte TRACE (NEGATIVE)
[2017-05-24 08:26] LABS: AMPHETAMINE QUAL UR NONE DETECTED (NEG <=1000)
[2017-05-24 08:50] VITALS: BP 145/84
[2017-05-24 09:45] VITALS: BP 137/86
[2017-05-24 13:14] VITALS: BP 145/85
[2017-05-24] MEDS ORDERED: NOR10 PO (15:31)
[2017-05-24] MEDS ORDERED: COL100 PO (15:32)
[2017-05-24] MEDS ORDERED: GOOD SENSE OMEP20 MG PO (15:34)
[2017-05-24] MEDS ORDERED: MUCINEX600 MG PO (15:36)
[2017-05-24 15:52] VITALS: BP 145/85
== END 2017-05-24 16:48 | disposition home or self-care (01) | DRG 253 ==
LOC: ED 11:23 → DU 12:54
PROVIDERS: Emergency Medicine; Family Medicine; Internal Medicine Gastroenterology
PROC: 0DB78ZX Excision of Stomach, Pylorus, Via Natural or Artificial Opening Endoscopic, Diagnostic (ICD-10-PCS; principal; 2017-05-24 08:00)
DX: K92.2 Gastrointestinal hemorrhage, unspecified (principal); N17.0 Acute kidney failure with tubular necrosis; E43 Unspecified severe protein-calorie malnutrition; I85.11 Secondary esophageal varices with bleeding; E87.8 Other disorders of electrolyte and fluid balance, not elsewhere classified; D69.6 Thrombocytopenia, unspecified; K76.6 Portal hypertension; K74.60 Unspecified cirrhosis of liver; I16.0 Hypertensive urgency; F10.21 Alcohol dependence, in remission; E66.9 Obesity, unspecified; Z68.32 Body mass index [BMI] 32.0-32.9, adult; B18.2 Chronic viral hepatitis C; Z87.891 Personal history of nicotine dependence
CPT/HCPCS: 43235; 83880; 84439; C9113; G0480; J0696; J1200; J1610; J1885; J2250; J2270; J2310; J2405; J3010; J3490; J7030; Q0092

== ENCOUNTER 2017-07-09 11:45 | Emergency (ER) | payer OTHER ==
[~2017-07-09] VITALS: Ht 172.7 cm; Wt 97.5 kg
[~2017-07-09 11:45] MED LIST changes: +GOOD SENSE OMEP20 MG PO; +MUCINEX600 MG PO; +NOR10 PO
[2017-07-09 11:59] VITALS: Ht 172.7 cm; Wt 97.5 kg
[2017-07-09 14:12] LABS: CALCIUM 8.1 mg/dL (8.5-10.1); CARBON DIOXIDE 23.9 mmol/L (21-32); CHLORIDE SERUM 110 mmol/L (98-107); CREATININE SERUM 0.9 mg/dL (0.7-1.3); GFR1 > 60 mL/min; GLUCOSE SERUM 73 mg/dL (74-106); POTASSIUM SERUM 3.8 mmol/L (3.5-5.1); SODIUM SERUM 140 mmol/L (136-145)
[2017-07-09 14:14] LABS: BASOPHIL % 0.6 % (0-2); RED CELL DISTRIBUTION WIDTH 14.4 % (11.5-14.5)
[2017-07-09 14:16] LABS: PLATELET COUNT 93 x10^3mcL (130-400)
[2017-07-09 14:20] LABS: ALKALINE PHOSPHATASE 63 U/L (46-116); ALT/SGPT 75 U/L (16-63); AST/SGOT 79 U/L (15-37); BILIRUBIN TOTAL 0.9 mg/dL (0.20-1.00); LIPASE 181 IU/L (73-393)
[2017-07-09 14:21] LABS: ALBUMIN 1.9 g/dL (3.4-5.0); TOTAL PROTEIN, SERUM 5.6 g/dL (6.4-8.2)
[2017-07-09 15:34] VITALS: BP 141/97
== END 2017-07-09 15:30 | disposition home or self-care (01) ==
LOC: ED 11:45
PROVIDERS: Emergency Medicine
DX: K29.20 Alcoholic gastritis without bleeding (principal); I10 Essential (primary) hypertension; K70.30 Alcoholic cirrhosis of liver without ascites
CPT/HCPCS: 36415; J2270; Q0162

== ENCOUNTER 2017-08-10 23:30 | Emergency (ER) | payer OTHER ==
[2017-08-11 01:36] VITALS: BP 146/98
== END 2017-08-11 01:36 | disposition home or self-care (01) ==
LOC: ED 23:30
DX: R10.13 Epigastric pain (principal); R60.0 Localized edema; R06.02 Shortness of breath; I10 Essential (primary) hypertension; K74.60 Unspecified cirrhosis of liver; B18.2 Chronic viral hepatitis C
CPT/HCPCS: J1940; J2270

== ENCOUNTER 2017-08-15 17:56 | Emergency (ER) | payer OTHER ==
[~2017-08-15] VITALS: Ht 172.7 cm; Wt 97.1 kg
[2017-08-15 18:27] VITALS: Ht 172.7 cm; Wt 97.1 kg
[2017-08-15 20:06] LABS: BASOPHIL % 0.5 % (0-2); RED CELL DISTRIBUTION WIDTH 13.9 % (11.5-14.5)
[2017-08-15 20:19] LABS: CALCIUM 7.9 mg/dL (8.5-10.1); CARBON DIOXIDE 29.4 mmol/L (21-32); CHLORIDE SERUM 110 mmol/L (98-107); CREATININE SERUM 1.1 mg/dL (0.7-1.3); GFR1 > 60 mL/min; GLUCOSE SERUM 82 mg/dL (74-106); POTASSIUM SERUM 3.9 mmol/L (3.5-5.1); SODIUM SERUM 143 mmol/L (136-145)
[2017-08-15 20:24] LABS: UA SPECIFIC GRAVITY >=1.030 (1.005-1.035); microscopic required? YES; urine erythrocyte 2+ (NEGATIVE)
[2017-08-15 20:24] LABS: ALBUMIN 1.9 g/dL (3.4-5.0); ALKALINE PHOSPHATASE 70 U/L (46-116); ALT/SGPT 65 U/L (16-63); AST/SGOT 73 U/L (15-37); BILIRUBIN TOTAL 0.32 mg/dL (0.20-1.00); CHOLESTEROL 155 mg/dL (<200); CHOLESTEROL/HDL RATIO 2.9; HDL CHOLESTEROL 54 mg/dL (40-60); TOTAL PROTEIN, SERUM 5.9 g/dL (6.4-8.2); TRIGLYCERIDES 113 mg/dL (<150)
[2017-08-15 20:38] LABS: PLATELET COUNT 86 x10^3mcL (130-400)
[2017-08-15 21:53] VITALS: BP 158/100
== END 2017-08-15 21:53 | disposition home or self-care (01) ==
LOC: ED 17:56
PROVIDERS: Specialist
DX: R60.0 Localized edema (principal); K74.60 Unspecified cirrhosis of liver; M54.5 Low back pain; I10 Essential (primary) hypertension
CPT/HCPCS: 36415; 83880; J1885; Q0092

== ENCOUNTER 2017-12-19 13:27 | Emergency (ER) | payer OTHER ==
[~2017-12-19] VITALS: Ht 172.7 cm; Wt 96.6 kg
[2017-12-19 13:33] VITALS: Ht 172.7 cm; Wt 96.6 kg
[2017-12-19 14:40] LABS: BASOPHIL % 0.6 % (0-2)
[2017-12-19 14:47] LABS: CALCIUM 7.6 mg/dL (8.5-10.1); CARBON DIOXIDE 26.2 mmol/L (21-32); CHLORIDE SERUM 106 mmol/L (98-107); GFR1 > 60 mL/min; GLUCOSE SERUM 110 mg/dL (74-106); POTASSIUM SERUM 3.6 mmol/L (3.5-5.1); SODIUM SERUM 137 mmol/L (136-145)
[2017-12-19 14:53] LABS: ALBUMIN 1.9 g/dL (3.4-5.0); ALKALINE PHOSPHATASE 62 U/L (46-116); ALT/SGPT 59 U/L (16-63); AST/SGOT 62 U/L (15-37); BILIRUBIN TOTAL 0.8 mg/dL (0.20-1.00); LIPASE 176 IU/L (73-393); TOTAL PROTEIN, SERUM 5.8 g/dL (6.4-8.2)
[2017-12-19 15:42] LABS: PLATELET COUNT 84 x10^3mcL (130-400)
[2017-12-19 16:31] VITALS: BP 145/45
== END 2017-12-19 16:31 | disposition home or self-care (01) ==
LOC: ED 13:27
PROVIDERS: Emergency Medicine
DX: K29.70 Gastritis, unspecified, without bleeding (principal); I10 Essential (primary) hypertension
CPT/HCPCS: J2270; J2405; J7030; Q0092

== ENCOUNTER 2017-12-28 23:32 | Emergency (ER) | payer OTHER ==
[~2017-12-28] VITALS: Ht 170.2 cm; Wt 95.7 kg
[2017-12-29 01:39] LABS: CARBON DIOXIDE 25.5 mmol/L (21-32); CHLORIDE SERUM 109 mmol/L (98-107); CREATININE SERUM 1.2 mg/dL (0.7-1.3); GFR1 > 60 mL/min; GLUCOSE SERUM 93 mg/dL (74-106); POTASSIUM SERUM 3.9 mmol/L (3.5-5.1); SODIUM SERUM 141 mmol/L (136-145)
[2017-12-29 01:50] LABS: ALKALINE PHOSPHATASE 64 U/L (46-116); ALT/SGPT 54 U/L (16-63); AST/SGOT 64 U/L (15-37); TOTAL PROTEIN, SERUM 6.4 g/dL (6.4-8.2)
[2017-12-29 01:51] LABS: ALBUMIN 2.1 g/dL (3.4-5.0)
[2017-12-29 01:56] LABS: BASOPHIL % 0.6 % (0-2); RED CELL DISTRIBUTION WIDTH 13.3 % (11.5-14.5)
[2017-12-29 02:01] LABS: PLATELET COUNT 84 x10^3mcL (130-400)
[2017-12-29 03:45] VITALS: BP 159/97
== END 2017-12-29 03:45 | disposition home or self-care (01) ==
LOC: ED 23:32
PROVIDERS: Emergency Medicine
DX: L03.116 Cellulitis of left lower limb (principal); I10 Essential (primary) hypertension
CPT/HCPCS: 36415; 83880; J2270; Q0092

== ENCOUNTER 2017-12-31 11:39 | Emergency (ER) | payer OTHER ==
[~2017-12-31] VITALS: Ht 172.7 cm; Wt 97.5 kg
[2017-12-31 11:47] VITALS: Ht 172.7 cm; Wt 97.5 kg
[2017-12-31 13:01] VITALS: BP 151/92
== END 2017-12-31 13:02 | disposition home or self-care (01) ==
LOC: ED 11:39
DX: M79.605 Pain in left leg (principal); I10 Essential (primary) hypertension; Z87.19 Personal history of other diseases of the digestive system

== ENCOUNTER 2018-01-04 11:58 | Emergency (ER) | payer OTHER ==
[~2018-01-04] VITALS: Ht 172.7 cm; Wt 97.1 kg
[2018-01-04 12:26] VITALS: Ht 172.7 cm; Wt 97.1 kg
[2018-01-04 13:17] LABS: BASOPHIL % 0.7 % (0-2); RED CELL DISTRIBUTION WIDTH 13.5 % (11.5-14.5)
[2018-01-04 13:18] LABS: CALCIUM 8.1 mg/dL (8.5-10.1); CARBON DIOXIDE 23.3 mmol/L (21-32); CHLORIDE SERUM 111 mmol/L (98-107); GFR1 > 60 mL/min; GLUCOSE SERUM 97 mg/dL (74-106); POTASSIUM SERUM 4.6 mmol/L (3.5-5.1); SODIUM SERUM 138 mmol/L (136-145)
[2018-01-04 13:20] LABS: PLATELET COUNT 98 x10^3mcL (130-400)
[2018-01-04 13:22] LABS: ALKALINE PHOSPHATASE 65 U/L (46-116); ALT/SGPT 57 U/L (16-63); AST/SGOT 65 U/L (15-37); BILIRUBIN TOTAL 0.8 mg/dL (0.20-1.00); LIPASE 240 IU/L (73-393); TOTAL PROTEIN, SERUM 6.4 g/dL (6.4-8.2)
[2018-01-04 13:23] LABS: ALBUMIN 1.9 g/dL (3.4-5.0)
[2018-01-04 15:16] VITALS: BP 153/81
== END 2018-01-04 15:16 | disposition home or self-care (01) ==
LOC: ED 11:58
PROVIDERS: Emergency Medicine
DX: K76.9 Liver disease, unspecified (principal); D69.6 Thrombocytopenia, unspecified; I10 Essential (primary) hypertension
CPT/HCPCS: C9113; J2270; Q0162

== ENCOUNTER 2018-01-11 11:03 | Inpatient (IN) | payer OTHER ==
[~2018-01-11] VITALS: Ht 172.7 cm; Wt 98.0 kg
[2018-01-11 12:14] LABS: BASOPHIL % 0.2 % (0-2); RED CELL DISTRIBUTION WIDTH 13.4 % (11.5-14.5)
[2018-01-11 12:15] LABS: PLATELET COUNT 82 x10^3mcL (130-400)
[2018-01-11 12:53] LABS: UA SPECIFIC GRAVITY 1.025 (1.005-1.035); microscopic required? YES; urine erythrocyte 2+ (NEGATIVE)
[2018-01-11 13:02] LABS: CALCIUM 7.9 mg/dL (8.5-10.1); CARBON DIOXIDE 24.4 mmol/L (21-32); CHLORIDE SERUM 108 mmol/L (98-107); CREATININE SERUM 1.1 mg/dL (0.7-1.3); GFR1 > 60 mL/min; GLUCOSE SERUM 103 mg/dL (74-106); POTASSIUM SERUM 3.9 mmol/L (3.5-5.1); SODIUM SERUM 139 mmol/L (136-145)
[2018-01-11 13:07] LABS: ALBUMIN 2.1 g/dL (3.4-5.0); ALKALINE PHOSPHATASE 67 U/L (46-116); ALT/SGPT 63 U/L (16-63); AST/SGOT 75 U/L (15-37); BILIRUBIN TOTAL 0.7 mg/dL (0.20-1.00); TOTAL PROTEIN, SERUM 6.8 g/dL (6.4-8.2)
[2018-01-11 16:25] LABS: AMPHETAMINE QUAL UR NONE DETECTED (See below)
[2018-01-11 16:29] LABS: CHOLESTEROL/HDL RATIO 2.9; MAGNESIUM 1.5 mg/dL (1.8-2.4); PHOSPHOROUS 3.2 mg/dL (2.5-4.9)
[2018-01-11 16:31] VITALS: BP 144/91
[2018-01-11 16:37] LABS: T3 TOTAL 1.34 ng/mL
[2018-01-11 16:38] VITALS: Ht 172.7 cm; Wt 98.0 kg
[2018-01-11 17:11] LABS: FREE T4 0.87 ng/dL (0.76-1.46); FREE THYROXINE INDEX 1.7 ug/dL (1.4-4.5); T4(THYROXINE) 5.4 ug/dL (4.7-13.3)
[2018-01-11 18:50] VITALS: BP 145/82
[2018-01-11 20:56] VITALS: BP 138/89
[2018-01-12 05:07] VITALS: BP 136/90
[2018-01-12 08:23] VITALS: BP 150/86
[2018-01-12 09:05] VITALS: BP 150/86
[2018-01-12 11:02] LABS: RED CELL DISTRIBUTION WIDTH 14.1 % (11.5-14.5)
[2018-01-12 11:11] LABS: PLATELET COUNT 93 x10^3mcL (130-400)
[2018-01-12 11:25] LABS: ALBUMIN 1.9 g/dL (3.4-5.0); BILIRUBIN TOTAL 0.8 mg/dL (0.20-1.00); CALCIUM 7.9 mg/dL (8.5-10.1); CARBON DIOXIDE 24.8 mmol/L (21-32); CREATININE SERUM 1.4 mg/dL (0.7-1.3); POTASSIUM SERUM 4.6 mmol/L (3.5-5.1); TOTAL PROTEIN, SERUM 6.4 g/dL (6.4-8.2)
[2018-01-12 12:49] VITALS: BP 148/91
[2018-01-12 12:49] LABS: BAND NEUTROPHIL 24 % (0-10); BASOPHIL 0 % (0-2); METAMYELOCTE 1 % (0-2); MONOCYTE 5 % (0-7); MYELOCYTE 1 % (0-2); SEGMENTED NEUTROPHILS 65 % (37-75)
[2018-01-12 12:50] LABS: rbc morphology (normal/abnorm) ABNORMAL (NORMAL); tear drop cell (dacryocyte) 1+
[2018-01-12 12:51] LABS: PLATELET MORPHOLOGY PLATELETS DECREASED; ovalocyte/elliptocyte 1+
[2018-01-12 16:28] VITALS: BP 148/89
[2018-01-12 21:02] VITALS: BP 130/78
[2018-01-13 05:15] VITALS: BP 150/78
[2018-01-13 06:15] LABS: RED CELL DISTRIBUTION WIDTH 14.2 % (11.5-14.5)
[2018-01-13 06:44] LABS: CALCIUM 7.2 mg/dL (8.5-10.1); CARBON DIOXIDE 21.6 mmol/L (21-32); CHLORIDE SERUM 106 mmol/L (98-107); GFR1 > 60 mL/min; GLUCOSE SERUM 88 mg/dL (74-106); MAGNESIUM 1.9 mg/dL (1.8-2.4); PHOSPHOROUS 2.3 mg/dL (2.5-4.9); POTASSIUM SERUM 4.2 mmol/L (3.5-5.1); SODIUM SERUM 136 mmol/L (136-145)
[2018-01-13 07:06] LABS: PLATELET COUNT 96 x10^3mcL (130-400)
[2018-01-13 08:36] VITALS: BP 111/84
[2018-01-13 11:41] LABS: ATYPICAL LYMPH 4 %; BAND NEUTROPHIL 15 % (0-10); BASOPHIL 0 % (0-2); MONOCYTE 7 % (0-7); SEGMENTED NEUTROPHILS 70 % (37-75); rbc morphology (normal/abnorm) ABNORMAL (NORMAL)
[2018-01-13 11:42] LABS: PLATELET MORPHOLOGY PLATELETS DECREASED
[2018-01-13 12:08] VITALS: BP 126/83
[2018-01-13 17:10] VITALS: BP 145/81
[2018-01-13 20:44] VITALS: BP 165/97
[2018-01-14 05:24] VITALS: BP 123/79
[2018-01-14 06:14] LABS: BASOPHIL % 0.4 % (0-2); RED CELL DISTRIBUTION WIDTH 13.9 % (11.5-14.5)
[2018-01-14 06:25] LABS: PLATELET COUNT 121 x10^3mcL (130-400)
[2018-01-14 06:41] LABS: CALCIUM 7.6 mg/dL (8.5-10.1); CHLORIDE SERUM 105 mmol/L (98-107); GFR1 > 60 mL/min; GLUCOSE SERUM 85 mg/dL (74-106); POTASSIUM SERUM 4.2 mmol/L (3.5-5.1); SODIUM SERUM 133 mmol/L (136-145)
[2018-01-14 08:13] VITALS: BP 126/81
[2018-01-14 13:44] VITALS: BP 143/91
[2018-01-14 17:40] VITALS: BP 131/72
[2018-01-14 21:00] VITALS: BP 143/87
[2018-01-15 05:28] VITALS: BP 115/67
[2018-01-15 07:02] LABS: BASOPHIL % 0.5 % (0-2); RED CELL DISTRIBUTION WIDTH 13.9 % (11.5-14.5)
[2018-01-15 07:04] LABS: PLATELET COUNT 111 x10^3mcL (130-400)
[2018-01-15 07:06] LABS: CALCIUM 7.7 mg/dL (8.5-10.1); CARBON DIOXIDE 25.6 mmol/L (21-32); CHLORIDE SERUM 111 mmol/L (98-107); GFR1 > 60 mL/min; GLUCOSE SERUM 83 mg/dL (74-106); POTASSIUM SERUM 4.8 mmol/L (3.5-5.1); SODIUM SERUM 141 mmol/L (136-145)
[2018-01-15 08:55] VITALS: BP 129/72
[2018-01-15 13:47] VITALS: BP 140/77
[2018-01-15 17:39] VITALS: BP 142/84
[2018-01-15 20:14] VITALS: BP 136/67
[2018-01-16 05:08] VITALS: BP 113/72
[2018-01-16 06:48] LABS: CALCIUM 8.1 mg/dL (8.5-10.1); CARBON DIOXIDE 25.3 mmol/L (21-32); CHLORIDE SERUM 109 mmol/L (98-107); CREATININE SERUM 1.2 mg/dL (0.7-1.3); GFR1 > 60 mL/min; GLUCOSE SERUM 91 mg/dL (74-106); POTASSIUM SERUM 4.6 mmol/L (3.5-5.1); SODIUM SERUM 139 mmol/L (136-145)
[2018-01-16 07:11] LABS: RED CELL DISTRIBUTION WIDTH 12.9 % (11.5-14.5)
[2018-01-16 07:13] LABS: PLATELET COUNT 119 x10^3mcL (130-400)
[2018-01-16 08:16] VITALS: BP 124/64
[2018-01-16 10:51] LABS: ATYPICAL LYMPH 7 %; BAND NEUTROPHIL 2 % (0-10); BASOPHIL 0 % (0-2); MONOCYTE 23 % (0-7); SEGMENTED NEUTROPHILS 47 % (37-75)
[2018-01-16 10:55] LABS: PLATELET MORPHOLOGY PLATELETS DECREASED; rbc morphology (normal/abnorm) ABNORMAL (NORMAL)
[2018-01-16 12:08] VITALS: BP 134/76
[2018-01-16 16:27] VITALS: BP 133/74
[2018-01-16 20:26] VITALS: BP 135/76
[2018-01-17 05:13] VITALS: BP 124/74
[2018-01-17 06:53] LABS: BASOPHIL % 0.4 % (0-2)
[2018-01-17 07:02] LABS: CARBON DIOXIDE 25.6 mmol/L (21-32); CHLORIDE SERUM 104 mmol/L (98-107); CREATININE SERUM 1.1 mg/dL (0.7-1.3); GFR1 > 60 mL/min; GLUCOSE SERUM 88 mg/dL (74-106); POTASSIUM SERUM 4.3 mmol/L (3.5-5.1); SODIUM SERUM 136 mmol/L (136-145)
[2018-01-17 07:03] LABS: PLATELET COUNT 118 x10^3mcL (130-400)
[2018-01-17 09:48] VITALS: BP 135/85
[2018-01-17 17:47] VITALS: BP 124/71
[2018-01-17 21:14] VITALS: BP 122/71
[2018-01-18 04:57] VITALS: BP 125/72
[2018-01-18 06:09] LABS: BASOPHIL % 0.5 % (0-2); RED CELL DISTRIBUTION WIDTH 13.8 % (11.5-14.5)
[2018-01-18 06:33] LABS: CALCIUM 8.5 mg/dL (8.5-10.1); CARBON DIOXIDE 24.2 mmol/L (21-32); CHLORIDE SERUM 105 mmol/L (98-107); CREATININE SERUM 1.2 mg/dL (0.7-1.3); GFR1 > 60 mL/min; GLUCOSE SERUM 103 mg/dL (74-106); MAGNESIUM 1.6 mg/dL (1.8-2.4); PHOSPHOROUS 4.4 mg/dL (2.5-4.9); POTASSIUM SERUM 5.5 mmol/L (3.5-5.1); SODIUM SERUM 136 mmol/L (136-145)
[2018-01-18 06:53] LABS: PLATELET COUNT 113 x10^3mcL (130-400)
[2018-01-18] MEDS ORDERED: CLEOCIN HCL300 MG PO (08:36)
[2018-01-18] MEDS ORDERED: LAC PO (08:37)
[2018-01-18 09:21] VITALS: BP 124/69
[2018-01-18 11:01] VITALS: BP 124/69
[2018-01-18 12:01] VITALS: BP 149/75
== END 2018-01-18 13:13 | disposition home or self-care (01) | DRG 710 ==
LOC: ED 11:03 → MU 15:16 → DU 15:16 → MU 16:21 → DU 17:32
PROVIDERS: Emergency Medicine; Family Medicine; Surgery
PROC: 30233N1 Transfusion of Nonautologous Red Blood Cells into Peripheral Vein, Percutaneous Approach (ICD-10-PCS; 2018-01-11)
PROC: 0YU50JZ Supplement Right Inguinal Region with Synthetic Substitute, Open Approach (ICD-10-PCS; principal; 2018-01-11 17:45)
DX: A41.9 Sepsis, unspecified organism (principal); N17.0 Acute kidney failure with tubular necrosis; E43 Unspecified severe protein-calorie malnutrition; D69.6 Thrombocytopenia, unspecified; I48.91 Unspecified atrial fibrillation; E83.42 Hypomagnesemia; K70.30 Alcoholic cirrhosis of liver without ascites; K40.30 Unilateral inguinal hernia, with obstruction, without gangrene, not specified as recurrent; L03.311 Cellulitis of abdominal wall; B18.2 Chronic viral hepatitis C; R80.9 Proteinuria, unspecified; I10 Essential (primary) hypertension; Z68.31 Body mass index [BMI] 31.0-31.9, adult; F10.20 Alcohol dependence, uncomplicated; Y90.9 Presence of alcohol in blood, level not specified; Z83.79 Family history of other diseases of the digestive system; Z82.49 Family history of ischemic heart disease and other diseases of the circulatory system; Z87.891 Personal history of nicotine dependence; E66.9 Obesity, unspecified; Z71.41 Alcohol abuse counseling and surveillance of alcoholic
CPT/HCPCS: 84439; 94150; 97110-GP; 97116-GP; 97530-GP; 97535-GP; C1781; J0330; J0696; J1170; J1940; J2270; J2543; J2704; J2710; J3010; J3475; J3490; J7030; J7050; J7120; P9035; Q0092; Q0163; Q9967

== ENCOUNTER 2018-03-03 10:01 | Emergency (ER) | payer OTHER ==
[~2018-03-03] VITALS: Ht 172.7 cm; Wt 96.2 kg
[~2018-03-03 10:01] MED LIST changes: +CLEOCIN HCL300 MG PO; +LAC PO
[2018-03-03 10:12] VITALS: Ht 172.7 cm; Wt 96.2 kg
[2018-03-03 12:07] VITALS: BP 169/105
== END 2018-03-03 12:00 | disposition home or self-care (01) ==
LOC: ED 10:01
DX: M25.572 Pain in left ankle and joints of left foot (principal); I10 Essential (primary) hypertension; K74.60 Unspecified cirrhosis of liver; Z98.890 Other specified postprocedural states; Z86.19 Personal history of other infectious and parasitic diseases
CPT/HCPCS: J1885; Q0092

== ENCOUNTER 2018-03-31 21:36 | Emergency (ER) | payer MEDICAID ==
[~2018-03-31] VITALS: Ht 172.7 cm; Wt 97.1 kg
[2018-03-31 21:44] VITALS: Ht 172.7 cm; Wt 97.1 kg
[2018-04-01 00:10] LABS: RED CELL DISTRIBUTION WIDTH 14.2 % (11.5-14.5)
[2018-04-01 00:13] LABS: CALCIUM 7.8 mg/dL (8.5-10.1); CARBON DIOXIDE 24.8 mmol/L (21-32); CREATININE SERUM 1.4 mg/dL (0.7-1.3); POTASSIUM SERUM 4.2 mmol/L (3.5-5.1)
[2018-04-01 00:26] LABS: BASOPHIL % 0 % (0-2); PLATELET COUNT 67 x10^3mcL (130-400)
[2018-04-01 02:17] VITALS: BP 146/82
== END 2018-04-01 02:17 | disposition home or self-care (01) ==
LOC: ED 21:36
PROVIDERS: Emergency Medicine
DX: L03.116 Cellulitis of left lower limb (principal); D69.6 Thrombocytopenia, unspecified; I10 Essential (primary) hypertension; Z87.19 Personal history of other diseases of the digestive system; Z98.890 Other specified postprocedural states; Z86.19 Personal history of other infectious and parasitic diseases
CPT/HCPCS: 36415; J1885

== ENCOUNTER 2018-04-03 10:57 | Emergency (ER) | payer MEDICAID ==
[~2018-04-03] VITALS: Ht 172.7 cm; Wt 95.8 kg
[2018-04-03 11:02] VITALS: Ht 172.7 cm; Wt 95.8 kg
[2018-04-03 13:05] VITALS: BP 154/100
== END 2018-04-03 13:05 | disposition home or self-care (01) ==
LOC: ED 10:57
DX: L03.116 Cellulitis of left lower limb (principal); I10 Essential (primary) hypertension; Z87.19 Personal history of other diseases of the digestive system; Z98.890 Other specified postprocedural states

== ENCOUNTER 2018-04-26 10:11 | Emergency (ER) | payer MEDICAID ==
[~2018-04-26] VITALS: Ht 172.7 cm; Wt 95.7 kg
[2018-04-26 10:16] VITALS: Ht 172.7 cm; Wt 95.7 kg
[2018-04-26 11:04] LABS: CALCIUM 7.8 mg/dL (8.5-10.1); CARBON DIOXIDE 23.5 mmol/L (21-32); CHLORIDE SERUM 108 mmol/L (98-107); CREATININE SERUM 1.2 mg/dL (0.7-1.3); GFR1 > 60 mL/min; GLUCOSE SERUM 79 mg/dL (74-106); POTASSIUM SERUM 3.7 mmol/L (3.5-5.1); SODIUM SERUM 140 mmol/L (136-145)
[2018-04-26 11:09] LABS: ALBUMIN 1.8 g/dL (3.4-5.0); ALKALINE PHOSPHATASE 70 U/L (46-116); ALT/SGPT 50 U/L (16-63); AST/SGOT 64 U/L (15-37); BILIRUBIN TOTAL 0.64 mg/dL (0.20-1.00); TOTAL PROTEIN, SERUM 6.7 g/dL (6.4-8.2)
[2018-04-26 11:58] LABS: BASOPHIL % 0.5 % (0-2); RED CELL DISTRIBUTION WIDTH 13.9 % (11.5-14.5)
[2018-04-26 12:00] LABS: PLATELET COUNT 121 x10^3mcL (130-400)
[2018-04-26 14:29] VITALS: BP 171/60
== END 2018-04-26 14:29 | disposition home or self-care (01) ==
LOC: ED 10:11
PROVIDERS: Emergency Medicine
DX: L03.116 Cellulitis of left lower limb (principal); I10 Essential (primary) hypertension; Z98.890 Other specified postprocedural states
CPT/HCPCS: J2270; J2405; J2543; Q0092

== ENCOUNTER 2018-05-12 18:53 | Inpatient (IN) | payer MEDICAID ==
[~2018-05-12] VITALS: Ht 172.7 cm; Wt 90.7 kg
[2018-05-12 19:23] VITALS: Ht 172.7 cm; Wt 90.7 kg
[2018-05-12 20:27] LABS: RED CELL DISTRIBUTION WIDTH 13.9 % (11.5-14.5)
[2018-05-12 20:31] LABS: BASOPHIL % 2.1 % (0-2); PLATELET COUNT 76 x10^3mcL (130-400)
[2018-05-12 20:38] LABS: CALCIUM 7.9 mg/dL (8.5-10.1); CARBON DIOXIDE 28.6 mmol/L (21-32); CREATININE SERUM 1.5 mg/dL (0.7-1.3); POTASSIUM SERUM 4.6 mmol/L (3.5-5.1)
[2018-05-12 20:42] LABS: BILIRUBIN TOTAL 0.47 mg/dL (0.20-1.00); TOTAL PROTEIN, SERUM 6.5 g/dL (6.4-8.2)
[2018-05-12 20:44] LABS: ALBUMIN 1.8 g/dL (3.4-5.0)
[2018-05-12 22:13] LABS: CHOLESTEROL/HDL RATIO 3.1; MAGNESIUM 1.7 mg/dL (1.8-2.4); PHOSPHOROUS 4.1 mg/dL (2.5-4.9)
[2018-05-12 22:36] VITALS: BP 180/98
[2018-05-13] VITALS (7 sets, daily range): BP systolic 118–180; BP diastolic 69–98
[2018-05-13] MEDS ORDERED: LASIX20 MG PO (00:09)
[2018-05-13] MEDS ORDERED: LACTULOSE10 GM/152 PO (00:10)
[2018-05-13 05:21] LABS: UA SPECIFIC GRAVITY >=1.030 (1.005-1.035); microscopic required? YES; urine erythrocyte 2+ (NEGATIVE)
[2018-05-13 05:50] LABS: AMPHETAMINE QUAL UR NONE DETECTED (See below)
[2018-05-13 06:46] LABS: CALCIUM 7.5 mg/dL (8.5-10.1); CARBON DIOXIDE 24.3 mmol/L (21-32); CHLORIDE SERUM 108 mmol/L (98-107); CREATININE SERUM 1.1 mg/dL (0.7-1.3); GFR1 > 60 mL/min; GLUCOSE SERUM 102 mg/dL (74-106); MAGNESIUM 1.8 mg/dL (1.8-2.4); POTASSIUM SERUM 3.8 mmol/L (3.5-5.1); SODIUM SERUM 136 mmol/L (136-145)
[2018-05-13 07:13] LABS: BASOPHIL % 0.4 % (0-2); RED CELL DISTRIBUTION WIDTH 13.6 % (11.5-14.5)
[2018-05-13 07:14] LABS: PLATELET COUNT 69 x10^3mcL (130-400)
[2018-05-14 05:50] VITALS: BP 144/79
[2018-05-14 07:55] LABS: BASOPHIL % 0.7 % (0-2); PLATELET COUNT 82 x10^3mcL (130-400); RED CELL DISTRIBUTION WIDTH 13.5 % (11.5-14.5)
[2018-05-14 07:57] VITALS: BP 131/95
[2018-05-14 08:06] LABS: CALCIUM 7.6 mg/dL (8.5-10.1); CARBON DIOXIDE 24.8 mmol/L (21-32); CHLORIDE SERUM 110 mmol/L (98-107); CREATININE SERUM 1.1 mg/dL (0.7-1.3); GFR1 > 60 mL/min; GLUCOSE SERUM 92 mg/dL (74-106); MAGNESIUM 1.6 mg/dL (1.8-2.4); POTASSIUM SERUM 3.9 mmol/L (3.5-5.1); SODIUM SERUM 139 mmol/L (136-145)
[2018-05-14 12:14] VITALS: BP 132/68
[2018-05-14 16:39] VITALS: BP 129/87
[2018-05-14 20:40] VITALS: BP 122/69
[2018-05-15 06:03] VITALS: BP 139/83
[2018-05-15 08:53] VITALS: BP 136/81
[2018-05-15 13:32] VITALS: BP 144/84
[2018-05-15 17:40] VITALS: BP 149/96
[2018-05-15 21:12] VITALS: BP 150/71
[2018-05-15 21:15] VITALS: BP 120/72
[2018-05-16 05:59] VITALS: BP 138/76
[2018-05-16 09:00] VITALS: BP 142/81
[2018-05-16 10:12] VITALS: BP 142/81
[2018-05-16 13:32] VITALS: BP 154/84
[2018-05-16 17:02] VITALS: BP 142/88
[2018-05-16 21:32] VITALS: BP 149/82
[2018-05-17 05:11] VITALS: BP 136/82
[2018-05-17 06:46] LABS: CALCIUM 7.4 mg/dL (8.5-10.1); CARBON DIOXIDE 17.6 mmol/L (21-32); CREATININE SERUM 1.4 mg/dL (0.7-1.3); MAGNESIUM 1.9 mg/dL (1.8-2.4); PHOSPHOROUS 3.3 mg/dL (2.5-4.9); POTASSIUM SERUM 3.8 mmol/L (3.5-5.1)
[2018-05-17 08:00] VITALS: BP 122/67
[2018-05-17 08:39] LABS: BASOPHIL % 0.2 % (0-2); PLATELET COUNT 103 x10^3mcL (130-400); RED CELL DISTRIBUTION WIDTH 13.4 % (11.5-14.5)
[2018-05-17 12:10] VITALS: BP 136/81
[2018-05-17 17:11] VITALS: BP 140/78
[2018-05-17 20:27] VITALS: BP 137/81
[2018-05-18 05:01] VITALS: BP 135/80
[2018-05-18 08:13] LABS: BASOPHIL % 0.4 % (0-2); RED CELL DISTRIBUTION WIDTH 13.6 % (11.5-14.5)
[2018-05-18 08:14] LABS: CALCIUM 7.7 mg/dL (8.5-10.1); CARBON DIOXIDE 18.2 mmol/L (21-32); CHLORIDE SERUM 114 mmol/L (98-107); CREATININE SERUM 1.3 mg/dL (0.7-1.3); GFR1 > 60 mL/min; GLUCOSE SERUM 80 mg/dL (74-106); PLATELET COUNT 108 x10^3mcL (130-400); POTASSIUM SERUM 3.8 mmol/L (3.5-5.1); SODIUM SERUM 142 mmol/L (136-145)
[2018-05-18 09:53] VITALS: BP 132/90
[2018-05-18 12:50] VITALS: BP 127/75
[2018-05-18 16:21] VITALS: BP 128/78
[2018-05-18 21:17] VITALS: BP 142/85
[2018-05-19 05:30] VITALS: BP 111/59
[2018-05-19 06:44] LABS: CARBON DIOXIDE 16.4 mmol/L (21-32); CHLORIDE SERUM 113 mmol/L (98-107); CREATININE SERUM 1.3 mg/dL (0.7-1.3); GFR1 > 60 mL/min; GLUCOSE SERUM 133 mg/dL (74-106); POTASSIUM SERUM 3.8 mmol/L (3.5-5.1); SODIUM SERUM 140 mmol/L (136-145)
[2018-05-19 07:10] LABS: BASOPHIL % 0.2 % (0-2); PLATELET COUNT 122 x10^3mcL (130-400); RED CELL DISTRIBUTION WIDTH 13.8 % (11.5-14.5)
[2018-05-19 08:18] VITALS: BP 147/86
[2018-05-19] MEDS ORDERED: PROMETHAZI6.25 MG/3 PO (10:22)
[2018-05-19] MEDS ORDERED: PREDNISONE20 MG PO (10:23)
[2018-05-19] MEDS ORDERED: PROTONIX20 MG PO (10:23)
[2018-05-19 10:58] VITALS: BP 147/86
[2018-05-19 11:10] VITALS: BP 147/86
== END 2018-05-19 12:51 | disposition home or self-care (01) ==
LOC: ED 18:53 → DU 21:17
PROVIDERS: Emergency Medicine; Family Medicine; Internal Medicine; ADMIT Internal Medicine
PROC: 0DJ08ZZ Inspection of Upper Intestinal Tract, Via Natural or Artificial Opening Endoscopic (ICD-10-PCS; principal; 2018-05-13 09:15)
DX: K74.69 Other cirrhosis of liver (principal); E43 Unspecified severe protein-calorie malnutrition; I85.11 Secondary esophageal varices with bleeding; N17.9 Acute kidney failure, unspecified; D69.59 Other secondary thrombocytopenia; K31.84 Gastroparesis; E83.42 Hypomagnesemia; K29.70 Gastritis, unspecified, without bleeding; B19.20 Unspecified viral hepatitis C without hepatic coma; J20.8 Acute bronchitis due to other specified organisms; I10 Essential (primary) hypertension; Z68.32 Body mass index [BMI] 32.0-32.9, adult
CPT/HCPCS: 43235; 83880; 87804; 90658; 94150; C9113; J0456; J1200; J1610; J1885; J1940; J2250; J2270; J2310; J2354; J2405; J2920; J3010; J3490; J7030; J7620; Q0092

== ENCOUNTER 2018-06-21 19:35 | Emergency (ER) | payer MEDICAID ==
[~2018-06-21] VITALS: Ht 172.7 cm; Wt 95.9 kg
[~2018-06-21 19:35] MED LIST changes: +LACTULOSE10 GM/152 PO; +LASIX20 MG PO; +PREDNISONE20 MG PO; +PROMETHAZI6.25 MG/3 PO; +PROTONIX20 MG PO
[2018-06-21 19:46] VITALS: Ht 172.7 cm; Wt 95.9 kg
[2018-06-21 20:14] LABS: BASOPHIL % 0.5 % (0-2)
[2018-06-21 20:15] LABS: PLATELET COUNT 99 x10^3mcL (130-400); RED CELL DISTRIBUTION WIDTH 14.8 % (11.5-14.5)
[2018-06-21 20:22] LABS: CALCIUM 8.1 mg/dL (8.5-10.1); CARBON DIOXIDE 27.3 mmol/L (21-32); CHLORIDE SERUM 111 mmol/L (98-107); CREATININE SERUM 1.3 mg/dL (0.7-1.3); GFR1 > 60 mL/min; GLUCOSE SERUM 86 mg/dL (74-106); POTASSIUM SERUM 3.9 mmol/L (3.5-5.1); SODIUM SERUM 143 mmol/L (136-145)
[2018-06-21 20:27] LABS: ALKALINE PHOSPHATASE 87 U/L (46-116); ALT/SGPT 70 U/L (16-63); AST/SGOT 74 U/L (15-37); BILIRUBIN TOTAL 0.4 mg/dL (0.20-1.00)
[2018-06-21 20:28] LABS: ALBUMIN 1.9 g/dL (3.4-5.0); TOTAL PROTEIN, SERUM 6.1 g/dL (6.4-8.2)
[2018-06-21 23:56] VITALS: BP 162/95
== END 2018-06-21 23:56 | disposition home or self-care (01) ==
LOC: ED 19:35
PROVIDERS: Emergency Medicine
DX: J20.9 Acute bronchitis, unspecified (principal); K92.0 Hematemesis; K74.60 Unspecified cirrhosis of liver; I10 Essential (primary) hypertension; Z98.890 Other specified postprocedural states
CPT/HCPCS: 36415; 87804; Q0092

== ENCOUNTER 2018-07-12 09:43 | Emergency (ER) | payer OTHER ==
[~2018-07-12] VITALS: Ht 172.7 cm; Wt 93.4 kg
[2018-07-12 09:46] VITALS: Ht 172.7 cm; Wt 93.4 kg
[2018-07-12 11:22] VITALS: BP 141/87
== END 2018-07-12 11:30 | disposition home or self-care (01) ==
LOC: ED 09:43
DX: M54.5 Low back pain (principal); I10 Essential (primary) hypertension; Z86.19 Personal history of other infectious and parasitic diseases; K74.60 Unspecified cirrhosis of liver; Z98.890 Other specified postprocedural states
CPT/HCPCS: J3010

== ENCOUNTER 2018-09-01 13:11 | Emergency (ER) | payer OTHER ==
[~2018-09-01] VITALS: Ht 172.7 cm; Wt 95.3 kg
[2018-09-01 13:21] VITALS: Ht 172.7 cm; Wt 95.3 kg
[2018-09-01 17:32] VITALS: BP 193/95
== END 2018-09-01 17:32 | disposition home or self-care (01) ==
LOC: ED 13:11
DX: L03.314 Cellulitis of groin (principal); I10 Essential (primary) hypertension; Z98.890 Other specified postprocedural states
CPT/HCPCS: J0696; J1885

== ENCOUNTER 2018-10-06 10:15 | Emergency (ER) | payer MEDICAID, OTHER | END 2018-10-06 10:41 | disposition home or self-care (01) | LOC: ED 10:15 ==

== ENCOUNTER 2018-10-14 01:43 | Emergency (ER) | payer MEDICAID ==
[~2018-10-14] VITALS: Ht 172.7 cm; Wt 94.3 kg
[2018-10-14 01:48] VITALS: Ht 172.7 cm; Wt 94.3 kg
[2018-10-14 02:44] LABS: BASOPHIL % 0.4 % (0-2); RED CELL DISTRIBUTION WIDTH 14.5 % (11.5-14.5)
[2018-10-14 02:45] LABS: PLATELET COUNT 86 x10^3mcL (130-400)
[2018-10-14 02:57] LABS: CALCIUM 8.1 mg/dL (8.5-10.1); CHLORIDE SERUM 113 mmol/L (98-107); CREATININE SERUM 1.3 mg/dL (0.7-1.3); GFR1 > 60 mL/min; GLUCOSE SERUM 112 mg/dL (74-106); SODIUM SERUM 146 mmol/L (136-145)
[2018-10-14 03:02] LABS: ALKALINE PHOSPHATASE 77 U/L (46-116); ALT/SGPT 72 U/L (16-63); AST/SGOT 79 U/L (15-37); BILIRUBIN TOTAL 0.61 mg/dL (0.20-1.00); LIPASE 229 IU/L (73-393); TOTAL PROTEIN, SERUM 6.9 g/dL (6.4-8.2)
[2018-10-14 03:07] LABS: ALBUMIN 2.1 g/dL (3.4-5.0)
[2018-10-14 04:12] VITALS: BP 161/98
== END 2018-10-14 04:12 | disposition home or self-care (01) ==
LOC: ED 01:43
PROVIDERS: Emergency Medicine
DX: K52.9 Noninfective gastroenteritis and colitis, unspecified (principal); K74.69 Other cirrhosis of liver; I10 Essential (primary) hypertension; Z98.890 Other specified postprocedural states
CPT/HCPCS: C9113; J2405; J3010; Q0092

== ENCOUNTER 2018-11-13 08:19 | Emergency (ER) | payer MEDICAID ==
[~2018-11-13] VITALS: Ht 172.7 cm; Wt 95.9 kg
[2018-11-13 08:27] VITALS: Ht 172.7 cm; Wt 95.9 kg
[2018-11-13 09:11] LABS: CALCIUM 8.1 mg/dL (8.5-10.1); CARBON DIOXIDE 23.6 mmol/L (21-32); CHLORIDE SERUM 111 mmol/L (98-107); CREATININE SERUM 1.2 mg/dL (0.7-1.3); GFR1 > 60 mL/min; GLUCOSE SERUM 110 mg/dL (74-106); POTASSIUM SERUM 4.4 mmol/L (3.5-5.1); SODIUM SERUM 142 mmol/L (136-145)
[2018-11-13 09:14] LABS: ALBUMIN 1.9 g/dL (3.4-5.0); ALKALINE PHOSPHATASE 67 U/L (46-116); ALT/SGPT 58 U/L (16-63); AMYLASE 219 U/L (25-115); AST/SGOT 62 U/L (15-37); BASOPHIL % 0.5 % (0-2); BILIRUBIN TOTAL 0.5 mg/dL (0.20-1.00); LIPASE 331 IU/L (73-393); RED CELL DISTRIBUTION WIDTH 14.1 % (11.5-14.5); TOTAL PROTEIN, SERUM 6.4 g/dL (6.4-8.2)
[2018-11-13 09:16] LABS: PLATELET COUNT 79 x10^3mcL (130-400)
[2018-11-13 12:10] VITALS: BP 120/70
== END 2018-11-13 12:10 | disposition home or self-care (01) ==
LOC: ED 08:19
PROVIDERS: Specialist
DX: R10.11 Right upper quadrant pain (principal); R10.10 Upper abdominal pain, unspecified; I10 Essential (primary) hypertension; Z98.890 Other specified postprocedural states
CPT/HCPCS: 36415; J1885; J3010; Q0162

== ENCOUNTER 2018-11-18 20:27 | Inpatient (IN) | payer MEDICAID ==
[~2018-11-18] VITALS: Ht 172.7 cm; Wt 98.0 kg
[2018-11-18 20:32] VITALS: Ht 172.7 cm; Wt 98.0 kg
--- NOTE | 2018-11-18 20:55 | NUR ---
PT AAOX4, RESPIRATIONS EVEN AND UNLABORED, NO S/S OF DISTRESS NOTED. PT SITTING UP IN BED, FAMILY MEMBER AT BEDSIDE. PT REPORTS DIZZINESS THAT STARTED TODAY, WITH ABD PAIN. PT REPORTS GENERALIZED ABD PAIN RATED 10/10 WITH PAIN ON PALPATION OF RUQ. PT REPORTS VOMITTING X 2 TODAY, RED IN COLOR. PT STATES "I JUST FEEL MORE TIRED THAN NORMAL". PT TALKING IN FULL CLEAR SENTENCES. PT ATTACHED TO FULL GROUNDWATER PROGRAMS DIRECTOR, VSS, NSR.
[2018-11-18 22:01] LABS: BASOPHIL % 0.6 % (0-2); RED CELL DISTRIBUTION WIDTH 14.2 % (11.5-14.5)
[2018-11-18 22:02] LABS: PLATELET COUNT 77 x10^3mcL (130-400)
[2018-11-18 22:05] LABS: CALCIUM 7.9 mg/dL (8.5-10.1); CARBON DIOXIDE 25.8 mmol/L (21-32); CHLORIDE SERUM 112 mmol/L (98-107); CREATININE SERUM 1.3 mg/dL (0.7-1.3); GFR1 > 60 mL/min; GLUCOSE SERUM 98 mg/dL (74-106); SODIUM SERUM 146 mmol/L (136-145)
[2018-11-18 22:10] LABS: ALKALINE PHOSPHATASE 69 U/L (46-116); ALT/SGPT 58 U/L (16-63); AST/SGOT 66 U/L (15-37); BILIRUBIN TOTAL 0.5 mg/dL (0.20-1.00); TOTAL PROTEIN, SERUM 6.2 g/dL (6.4-8.2)
--- NOTE | 2018-11-18 22:10 | NUR ---
PT SITITNG UP IN BED, NO S/S OF DISTRESS NOTED, RESPIRATIONS EVEN AND UNLABORED. PLAN OF CARE DISCUSSED WITH PT.
[2018-11-18 22:11] LABS: ALBUMIN 1.9 g/dL (3.4-5.0)
--- NOTE | 2018-11-18 22:13 | NUR ---
XRAY IN PROGRESS AT BEDSIDE.
--- NOTE | 2018-11-18 22:59 | NUR ---
PT SLEEPING IN BED, TO POSITION OF COMFORT. EASILY AROUSABLE, NO S/S OF DISTRES. PT REPORTS ABD RATED 10/10 HAS BECOME INTOLERABLE. WILL NOTIFY DR ESTEBAN AND CONTINUE TO MONITOR.
[2018-11-19] VITALS (8 sets, daily range): BP systolic 146–182; BP diastolic 83–105
--- NOTE | 2018-11-19 00:06 | NUR ---
PT REPORTS PAIN HAS DECREASED TO A 5/10 AND IS TOLERABLE. PT SITTING UP IN BED NAD.
--- NOTE | 2018-11-19 00:26 | NUR ---
REPORT GIVEN TO MANUFACTURING TECHMANDA TO ASSUME CARE OF PT.
[2018-11-19 00:49] LABS: CHOLESTEROL/HDL RATIO 2.7
--- NOTE | 2018-11-19 00:52 | NUR ---
PT BP: 174/[address] SOMMER.
[2018-11-19 00:58] LABS: T3 TOTAL 1.35 ng/mL
--- NOTE | 2018-11-19 00:59 | NUR ---
RECEIVED PT FROM ER. PT ADMIT FOR UPPER GI BLEED. PT IS A/O X4, VERBAL RESPONSIVE, ABLE TO TELL WHAT HE NEEDS. LUNG SOUND CLEAR BILATERAL, NO COUGH, NO SOB, PT IS ON TELE 21, NSR, DENY ANY CHEST PAIN OR DISCOMFORT, BOWEL SOUND PRESENT ALL 4 QUADRANTS, PT C/O DISTENTION, NO TENDER. PEDAL PRESENT BOTH FEET, NO EDEMA, IV AT LEFT FA, NO LEAKING, NO INFILTRAIOTN. ALL ADLS ASSIST, ALL NEED MET, CALL LIGHT IN REACH, WILL CONTINUE TO MONITOR.
--- NOTE | 2018-11-19 01:25 | NUR ---
PT RESTING IN BED AT THIS TIME. NO DISTRES NOTED. AWAITING FURTHER ORDERS FOR HYDRALYZINE.
[2018-11-19 01:52] LABS: FREE T4 0.92 ng/dL (0.76-1.46); FREE THYROXINE INDEX 1.9 ug/dL (1.4-4.5); T4(THYROXINE) 5.7 ug/dL (4.7-13.3)
[2018-11-19 06:46] LABS: BASOPHIL % 0.4 % (0-2); RED CELL DISTRIBUTION WIDTH 14.3 % (11.5-14.5)
[2018-11-19 07:07] LABS: CALCIUM 7.5 mg/dL (8.5-10.1); CARBON DIOXIDE 19.9 mmol/L (21-32); CHLORIDE SERUM 115 mmol/L (98-107); CREATININE SERUM 1.2 mg/dL (0.7-1.3); GFR1 > 60 mL/min; GLUCOSE SERUM 89 mg/dL (74-106); POTASSIUM SERUM 4.1 mmol/L (3.5-5.1); SODIUM SERUM 144 mmol/L (136-145)
[2018-11-19 07:14] LABS: PLATELET COUNT 71 x10^3mcL (130-400)
--- NOTE | 2018-11-19 07:49 | NUR ---
AAO TIMES 4. TELE # 21 SR. VS'S STABLE. NO SOB. LUNGS CTA. O2 SAT ON RA 98%. BS'S ACTIVE TIMES 4. [place] STRONG. IV SITE LEFT WRIST PATENT, CDI. NO C/O PAIN. NO VOMITING YET THIS SHIFT. PERIPHERAL PULSES PALPABLE. +1 EDEMA LLE. COOPERATIVE.
--- NOTE | 2018-11-19 08:55 | NUR ---
Nutrition Note: Received consult for severe malnutrition on 11/19/18. Pt. admitted with GI bleed associated with hematemesis x 2 per H and P documentations. Does not meet high risk criteria for high risk per nutritional screening. Will be assessed as moderate risk with initial assessment due 11/22-11/24/18.
--- NOTE | 2018-11-19 09:54 | NUR ---
HIS BP IS NOW 182/105, DR XIONG IS AWARE, SHE WILL ORDER SOMETHING IV FOR HIM SINCE HE IS NPO AND HE IS ABOUT TO GET AND EGD WITH DR ARAGON.
[2018-11-19 10:17] LABS: UA SPECIFIC GRAVITY 1.025 (1.005-1.035); microscopic required? YES; urine erythrocyte 1+ (NEGATIVE)
[2018-11-19 10:32] LABS: AMPHETAMINE QUAL UR NONE DETECTED (See below)
--- NOTE | 2018-11-19 18:07 | NUR ---
AAO TIMES 4. TELE 21 SR. C/O ABD PAIN 10/09, ATE 50% OF DINNER. GAVE MORPHINE 2 MG IVP AT 1803. PLEASANT, COOPERATIVE. NO SOB. IV SITE LFA CDI.
--- NOTE | 2018-11-19 18:32 | NUR ---
I NOTIFIED DR RAGSDALE OF PT'S BP OF 173/95, HR 53. SHE STATES SHE WILL ORDER A LASIX IV DOSE NOW.
--- NOTE | 2018-11-19 19:30 | NUR ---
PT IS A/O x4. ON TELE #21, SB WITH HR IN 54S. DENIES ANY CHEST PAIN OR PRESSURE. PULSES ARE PRESENT. NO EDEMA NOTED. LUNGS CLEAR IN ALL FEILDS. ON RA, DENIES ANY SOB. EQUAL CHEST RISE AND FALL. NO SIGN OF RESP DISTRESS. BOWEL SOUNDS PRESENT x4. ABD IS MILDLY DISTENDED. DENIES ANY ABD DISTRESS. SKIN WARM AND INTACT. DENIES ANY PAIN AT THIS TIME. SALINE LOCKED ON LFA INTACT AND PATENT. BED IS AT LOWEST SETTING. CALL LIGHT WITHIN REACH. WILL CONTIUE TO MONITOR.
--- NOTE | 2018-11-19 21:00 | NUR ---
MD RAGSDALE IS MADE AWARE OF PT B/P BEING 173/93 AND UNABLE TO GIVE SCHEDUALED B/P MEDICATION D/T HR BEING BELOW 60S. TO ORDER NEW MEDICATION. AWAITING ORDERS.
--- NOTE | 2018-11-20 00:30 | NUR ---
GAVE PT A SNACK PER REQUEST. PT TOLERATING SNACK WELL. DENIES ANY PAIN OR DISTRESS. BED IS AT LOWEST SETTING. CALL LIGHT WITHIN REACH. WILL CONTINUE TO MONITOR.
[2018-11-20 05:53] VITALS: BP 142/90
--- NOTE | 2018-11-20 05:59 | NUR ---
PT IS RESTING IN BED WITH BOTH EYES CLOSED. BREATHING EVEN AND UNLABORED. NO SIGN OF DISTRESS NOTED. NO ACUTE EVENT OCCURED DURING SHIFT. BED IS AT LOWEST SETTING. CALL LIGHT WITHIN REACH. WILL ENDORSE TO AM NURSE.
--- NOTE | 2018-11-20 07:10 | NUR ---
RECEIVED PT FROM FINISH FILER ARACELY. Dede/MARVIN. TELE#22. DENIES CHEST PAIN/PRESSURE. RESPIRATIONS EQUAL AND UNLABORED ON RA. DENIES SOB. PT C/O ABDOMINAL PAIN TO MUQ SHARP 02/08. PT STATES PAIN HAS BEEN INTERMITTENT SINCE LAST NIGHT. PT ALSO C/O HERNANDEZ TO BACK OF HEAD. PT STATES "THIS HAPPENDS WHEN MY BLOOD PRESSURE IS HIGH" IV TO LW SALINE LOCKED. NO REDNESS OR SWELLING NOTED. WILL CONTINUE TO MONITOR. CALL LIGHT IN REACH. BED IN LOWEST POSITION.
[2018-11-20 07:23] LABS: BASOPHIL % 0.7 % (0-2); RED CELL DISTRIBUTION WIDTH 14.3 % (11.5-14.5)
[2018-11-20 07:29] LABS: PLATELET COUNT 86 x10^3mcL (130-400)
[2018-11-20 07:32] LABS: CALCIUM 7.8 mg/dL (8.5-10.1); CARBON DIOXIDE 24.1 mmol/L (21-32); CHLORIDE SERUM 111 mmol/L (98-107); CREATININE SERUM 1.3 mg/dL (0.7-1.3); GFR1 > 60 mL/min; GLUCOSE SERUM 88 mg/dL (74-106); MAGNESIUM 1.8 mg/dL (1.8-2.4); PHOSPHOROUS 3.7 mg/dL (2.5-4.9); POTASSIUM SERUM 4.4 mmol/L (3.5-5.1); SODIUM SERUM 142 mmol/L (136-145)
--- NOTE | 2018-11-20 08:09 | NUR ---
AMA CHAPIN AT BEDSIDE. PER AMA CHAPIN PT WILL STAY ON MORE DAY AND SHE WILL ADJUST PT BLOOD PRESSURE MEDICATIONS TO CONTROL PT BP. ALL QUESTIONS AND CONCERNS ADDRESSED.
--- NOTE | 2018-11-20 08:59 | NUR ---
PT SITTING UP IN BED. NO ACUTE RESP DISTRESS NOTED ON RA. PT STATES PAIN TO MUQ ABDOMEN HAS IMPROVED 5/10 SINCE RECEIVING MORPHINE. IV TO LW FLUSHED WELL. NO REDNESS OR SWELLING NOTED. WILL CONTINUE TO MONITOR. CALL LIGHT IN REACH. BED IN LOWEST POSITION.
[2018-11-20 09:09] VITALS: BP 179/94
[2018-11-20 10:30] VITALS: BP 161/92
[2018-11-20 12:35] VITALS: BP 171/93
--- NOTE | 2018-11-20 13:04 | NUR ---
PT SITTING UP IN BED. NO ACUTE RESP DISTRESS NOTED ON RA. BLOOD PRESSURE WAS RECHECKED WAS 171/93, HR 52. GIVEN PO MEDS. TOLERATED WELL. WILL CONTINUE TO MONITOR. CALL LIGHT IN REACH. BED IN LOWEST POSITION.
[2018-11-20 17:22] VITALS: BP 158/94
--- NOTE | 2018-11-20 18:28 | NUR ---
PT SITTING UP IN BED. NO ACUTE RESP DISTRESS NOTED ON RA. PT DENIES ANY PAIN AT THIS TIME. IV SALINE LOCKED TO LW. NO REDNESS OR SWELLING NOTED. PT DENIES ANY N/V. WILL ENDORSE TO PRESSURE TANK OPERATOR RN. CALL LIGHT IN REACH. BED IN LOWEST POSITION.
--- NOTE | 2018-11-20 19:40 | NUR ---
RECEIVED REPORT FROM AM NURSE. PT IN BED WITH FAMILY AT BEDSIDE. PT AAOX4, ABLE TO MAKE NEEDS KNOWN. ON TELE#21 SR HR 72. DENIES CP/PRESSURE AT THIS TIME. PALPABLE PULSES TO BLE. TRACE EDEMA TO LLE. LUNG SOUNDS CTA ON RA. BREATHING EVEN AND UNLABORED. ABD SOFT AND NONDISTENDED. ACTIVE BOWEL SOUNDS X4 QUAD. DENIES N/V. DENIES BLEEDING. VOIDS FREELY BRP. AMBULATORY. IV SL TO RIGHT WRIST FLUSHING WELL. SITE FREE FROM REDNESS AND SWELLING. BED AT LOWEST SETTING. SIDE RAILS X2 UP. CALL LIGHT WITHING REACH. WILL CONTINUE TO MONITOR.
[2018-11-20 20:48] VITALS: BP 162/85
--- NOTE | 2018-11-21 00:16 | NUR ---
PT LAYING DOWN IN BED WITH EYES CLOSED. BREATHING EVEN AND UNLABORED ON RA. NO ACUTE DISTRESS NOTED. BED AT LOWEST SETTING. SIDE RAILS X2 UP. CALL LIGHT WITHING REACH. WILL CONTINUE TO MONITOR.
--- NOTE | 2018-11-21 05:24 | NUR ---
PT SLEPT WELL THROUGHOUT THE NIGHT. BREATHING EVEN AND UNLABORED ON RA. NO ACUTE DISTRESS NOTED. ALL NEEDS ASSESSED AND ATTENDED TO. PT ON SB 50'S, REMAINS ASYMPTOMATIC. DENIES ANY CP/PRESSURE. NO S/S OF ACTIVE BLEEDING. IV SL TO LEFT WRIST FLUSHING WELL. SITE FREE FROM REDNESS AND SWELLING. BED AT LOWEST SETTING. SIDE RAILS X2 UP. CALL LIGHT WITHING REACH. WILL ENDORSE CARE TO AM NURSE.
[2018-11-21 05:44] VITALS: BP 129/75
--- NOTE | 2018-11-21 07:07 | NUR ---
RECEIVED PT FROM SWIMMING PROFESSOR NURSE. PT RESTING IN BED, AOX4, RESP E/U ON RA. C/O OF MILD ABD DISCOMFORT BUT DENIES PAIN OR N/V AT THIS TIME. ON TELE 21 SHOWING NSR, HR: 74. SALINE LOCK TO L WRIST W/ NO ERYTHEMA OR EDEMA. BED IN LOWEST POSITION AND CALL LIGHT WITHIN REACH. WILL CONTINUE TO MONITOR.
[2018-11-21 07:46] LABS: BASOPHIL % 0.3 % (0-2); RED CELL DISTRIBUTION WIDTH 14.4 % (11.5-14.5)
[2018-11-21 07:53] LABS: PLATELET COUNT 78 x10^3mcL (130-400)
[2018-11-21 08:50] VITALS: BP 155/80
[2018-11-21] MEDS ORDERED: LISINOPRIL10 MG PO (12:00)
[2018-11-21] MEDS ORDERED: PROTONIX20 MG PO (12:09)
[2018-11-21 12:34] VITALS: BP 149/88
[2018-11-21 13:18] VITALS: BP 149/88
--- NOTE | 2018-11-21 14:11 | NUR ---
PT DISCHARGED. REVIEWED VISIT SUMMARY, EDUCATIONAL PACKET AND NEW RX MEDS W/ PT WELL FOLLOW UP INSTRCUTIONS. PT AOX4, RESP E/U, VS STABLE, DENIES PAIN AT THIS TIME. IV FROM L WRIST REMOVED, CATH INTACT. GAUZE DRESSING APPLIED. PT AMBULATORY TO DISCHARGE OFFICE, ESCORTED BY ARACELY ESQUIVEL W/ NO ACUTE INCIDENCE.
== END 2018-11-21 14:13 | disposition home or self-care (01) | DRG 253 ==
LOC: ED 20:27 → DU 11-19 00:11
PROVIDERS: Internal Medicine; Specialist; ADMIT Internal Medicine
PROC: 0DB78ZX Excision of Stomach, Pylorus, Via Natural or Artificial Opening Endoscopic, Diagnostic (ICD-10-PCS; principal; 2018-11-19 10:00)
DX: K92.0 Hematemesis (principal); N17.0 Acute kidney failure with tubular necrosis; E43 Unspecified severe protein-calorie malnutrition; E87.0 Hyperosmolality and hypernatremia; K76.6 Portal hypertension; E83.51 Hypocalcemia; K74.69 Other cirrhosis of liver; I85.10 Secondary esophageal varices without bleeding; D62 Acute posthemorrhagic anemia; B18.2 Chronic viral hepatitis C; K29.70 Gastritis, unspecified, without bleeding; K31.89 Other diseases of stomach and duodenum; I10 Essential (primary) hypertension; E03.9 Hypothyroidism, unspecified; Z68.32 Body mass index [BMI] 32.0-32.9, adult
CPT/HCPCS: 43235; 83880; 84439; C9113; G0378; J1200; J1610; J1940; J2250; J2270; J2310; J3010; J3490; J7030; Q0092

== ENCOUNTER 2018-12-03 08:16 | Emergency (ER) | payer MEDICAID ==
[~2018-12-03] VITALS: Ht 172.7 cm; Wt 93.0 kg
[~2018-12-03 08:16] MED LIST changes: +LISINOPRIL10 MG PO
[2018-12-03 08:24] VITALS: Ht 172.7 cm; Wt 93.0 kg
[2018-12-03 11:07] VITALS: BP 138/89
== END 2018-12-03 11:07 | disposition home or self-care (01) ==
LOC: ED 08:16
DX: S63.502A Unspecified sprain of left wrist, initial encounter (principal); I10 Essential (primary) hypertension; K74.60 Unspecified cirrhosis of liver; Z86.19 Personal history of other infectious and parasitic diseases; W01.198A Fall on same level from slipping, tripping and stumbling with subsequent striking against other object, initial encounter; Y93.89 Activity, other specified; Y92.89 Other specified places as the place of occurrence of the external cause; Y99.8 Other external cause status
CPT/HCPCS: Q0092

== ENCOUNTER 2018-12-13 12:03 | Emergency (ER) | payer MEDICAID ==
[~2018-12-13] VITALS: Ht 172.7 cm; Wt 89.8 kg
[2018-12-13 12:36] VITALS: Ht 172.7 cm; Wt 89.8 kg
[2018-12-13 13:11] LABS: BASOPHIL % 0.5 % (0-2); RED CELL DISTRIBUTION WIDTH 13.5 % (11.5-14.5)
[2018-12-13 13:14] LABS: PLATELET COUNT 105 x10^3mcL (130-400)
[2018-12-13 13:23] LABS: CALCIUM 8.6 mg/dL (8.5-10.1); CARBON DIOXIDE 24.8 mmol/L (21-32); CREATININE SERUM 1.4 mg/dL (0.7-1.3); POTASSIUM SERUM 4.3 mmol/L (3.5-5.1)
[2018-12-13 13:28] LABS: ALBUMIN 2.2 g/dL (3.4-5.0); BILIRUBIN TOTAL 0.55 mg/dL (0.20-1.00)
[2018-12-13 14:23] VITALS: BP 157/79
== END 2018-12-13 14:23 | disposition home or self-care (01) ==
LOC: ED 12:03
DX: R10.11 Right upper quadrant pain (principal); R11.10 Vomiting, unspecified; I10 Essential (primary) hypertension; Z98.890 Other specified postprocedural states; Z86.19 Personal history of other infectious and parasitic diseases
CPT/HCPCS: J1885

== ENCOUNTER 2019-03-06 17:32 | Emergency (ER) | payer MEDICAID ==
[~2019-03-06] VITALS: Ht 172.7 cm; Wt 93.0 kg
[2019-03-06 17:59] VITALS: Ht 172.7 cm; Wt 93.0 kg
[2019-03-06 18:53] LABS: BASOPHIL % 0.5 % (0-2)
[2019-03-06 18:56] LABS: PLATELET COUNT 95 x10^3mcL (130-400); RED CELL DISTRIBUTION WIDTH 14.6 % (11.5-14.5)
[2019-03-06 18:59] LABS: CARBON DIOXIDE 28.1 mmol/L (21-32); CREATININE SERUM 1.3 mg/dL (0.7-1.3); POTASSIUM SERUM 4.3 mmol/L (3.5-5.1)
[2019-03-06 19:04] LABS: BILIRUBIN TOTAL 0.42 mg/dL (0.20-1.00); TOTAL PROTEIN, SERUM 6.7 g/dL (6.4-8.2)
[2019-03-06 19:05] LABS: ALBUMIN 2.1 g/dL (3.4-5.0)
[2019-03-06 20:21] VITALS: BP 170/105
== END 2019-03-06 20:21 | disposition home or self-care (01) ==
LOC: ED 17:32
DX: R10.11 Right upper quadrant pain (principal); R10.13 Epigastric pain; R53.1 Weakness; I10 Essential (primary) hypertension; Z98.890 Other specified postprocedural states
CPT/HCPCS: J3490

== ENCOUNTER 2019-05-30 19:08 | Emergency (ER) | payer MEDICAID ==
[~2019-05-30] VITALS: Ht 172.7 cm; Wt 97.1 kg
[2019-05-30 19:50] VITALS: Ht 172.7 cm; Wt 97.1 kg
[2019-05-30 20:50] LABS: BASOPHIL % 0.6 % (0-2); RED CELL DISTRIBUTION WIDTH 14.1 % (11.5-14.5)
[2019-05-30 20:51] LABS: PLATELET COUNT 73 x10^3mcL (130-400)
[2019-05-30 20:58] LABS: CALCIUM 7.5 mg/dL (8.5-10.1); CARBON DIOXIDE 24.5 mmol/L (21-32); CREATININE SERUM 1.7 mg/dL (0.7-1.3)
[2019-05-30 21:03] LABS: BILIRUBIN TOTAL 0.5 mg/dL (0.20-1.00); TOTAL PROTEIN, SERUM 6.3 g/dL (6.4-8.2)
[2019-05-30 21:27] LABS: microscopic required? YES; urine erythrocyte 1+ (NEGATIVE)
[2019-05-30 22:39] VITALS: BP 165/91
== END 2019-05-30 22:48 | disposition home or self-care (01) ==
LOC: ED 19:08
PROVIDERS: Emergency Medicine
DX: B34.9 Viral infection, unspecified (principal); I10 Essential (primary) hypertension; R11.10 Vomiting, unspecified
CPT/HCPCS: 87804; J0360; J7030; Q0092

== ENCOUNTER 2019-06-09 04:37 | Emergency (ER) | payer MEDICAID ==
[~2019-06-09] VITALS: Ht 172.7 cm; Wt 97.1 kg
[2019-06-09 04:42] VITALS: Ht 172.7 cm; Wt 97.1 kg
[2019-06-09 05:55] VITALS: BP 101/47
== END 2019-06-09 05:55 | disposition home or self-care (01) ==
LOC: ED 04:37
DX: R07.89 Other chest pain (principal); B34.9 Viral infection, unspecified; I10 Essential (primary) hypertension; Z98.890 Other specified postprocedural states
CPT/HCPCS: J1885

== ENCOUNTER 2019-07-14 08:58 | Emergency (ER) | payer MEDICAID ==
[~2019-07-14] VITALS: Ht 172.7 cm; Wt 95.3 kg
[2019-07-14 09:07] VITALS: Ht 172.7 cm; Wt 95.3 kg
[2019-07-14 11:31] VITALS: BP 150/82
== END 2019-07-14 11:31 | disposition home or self-care (01) ==
LOC: ED 08:58
DX: H00.011 Hordeolum externum right upper eyelid (principal); H10.9 Unspecified conjunctivitis; I10 Essential (primary) hypertension; Z98.890 Other specified postprocedural states